=== PATIENT | male | born 1980 | race Caucasian/White ===

== ENCOUNTER 2019-02-10 22:22 | Inpatient (IN) ==
[2019-02-10] MEDS ORDERED: NS 1,000 ML IV ONE (23:55)
[2019-02-11] MEDS ORDERED: ZOSYN 3.375 GM in NS 50 ML IV ONE (00:53)
[2019-02-11] MEDS ORDERED: VANCOMYCIN 1 GM/NS 1 GM/250 ML IVPB IV ONE ×2 (00:53→08:00)
[2019-02-11 01:07] LABS: BASO# 0.02 X1000 (0.0-0.2); BASO% 0.2 % (0.0-0.8); EOS% 1.8 % (0.0-10.0); HEMOGLOBIN 10.6 g/dL (14.0-18.0); IMM GRAN# 0.03 X1000 (0.0-0.04); IMM GRAN% 0.3 % (0.0-0.5); LYMPH# 2.07 X1000 (1.2-3.4); LYMPH% 19.1 % (20.5-51.1); MCH 31.5 PG (27-31); MCHC 36.6 g/dL (33-37); MCV 86.3 FL (81-99); MONO# 0.87 X1000 (0.11-0.59); MPV 9.7 FL (7.4-10.4); NEUT# 7.64 X1000 (1.4-6.5); NEUT% 70.6 % (42.2-75.2); PLT 153 X1000 (130-400); RBC 3.36 XMIL (4.7-6.1); RDW 14.3 % (11.5-14.5); WBC 10.83 X1000 (4.8-10.8)
--- NOTE | 2019-02-11 01:31 | PROVIDER DOCUMENTATION ---
This chart was entered by Preston Manzo Scribe, acting as scribe for Hebert Zhou MD. HPI-Musculoskeletal Pain/Inj - GENERAL Chief Complaint: Edema Stated Complaint: CELLULITIS Time Seen by Provider: 02/10/19 23:34 Source: patient - HX OF PRESENT ILLNESS-MUSKULOSKELTAL Nature of Presenting Problem: Pt is a 38 yom who presents to the ED with a CC of cellulitis. Pt reports he noticed his cellulitis on , but states he thought it would eventually get better. Pt states he saw a surgeon last week to have a toe amputated and when he asked the surgeon about his leg the surgeon stated that it looked like a bug bite. Pt also complains of right knee tenderness and states that he cannot walk. Pt reports a hx of diabetes. Upon examination the pt had an ulceration to the arch of his foot, erythema to the lateral side of his leg, distal leg swelling, popliteal, calf, and medial thigh tenderness. Quality of Pain: reports: aching Severity in ED: mild Onset/Duration: 5 days ago Timing: still present Any recent injury?: No Similar Symptoms Previously?: No Recently seen or treated by another doctor?: No - LOWER EXTREMITY PAIN/INJURY Lower Extremities Pain: leg: right, knee: right, foot: right Context / Method of Injury: reports: unknown Associated Symptoms: reports: denies symptoms Review of Systems - Adult - REVIEW OF SYSTEMS - ADULT Constitutional: reports: see HPI. denies: chills, fever, fatique, night sweats Eyes: reports: no symptoms reported Ears, Nose, Mouth & Throat: reports: no symptoms reported Cardiovascular: reports: no symptoms reported Respiratory: reports: no symptoms reported Gastrointestinal: reports: no symptoms reported Genitourinary: reports: no symptoms reported Musculoskeletal: reports: see HPI, joint pain (Right knee, leg, and foot), joint swelling. denies: bone pain, back pain, neck pain Integumentary: reports: no symptoms reported Neurological: reports: no symptoms reported Psychiatric: reports: no symptoms reported Endocrine: reports: see HPI, change in skin pigment. denies: excessive sweating, cold intolerance, heat intolerance, increased hunger Hematologic/Lymphatic: reports: no symptoms reported Allergic/Immunologic: reports: no symptoms reported All Other Systems: Reviewed and Negative Past History - Adult - PAST MEDICAL HISTORY-ADULT Review of Records: reports: Old Records Reviewed, Nursing Assessment Review, Medications Reviewed, Social history reviewed & non-contributory. Major Childhood Illnesses: reports: denies history Cardiovascular: reports: HTN Respiratory: reports: denies history Gastrointestinal: reports: denies history Obstetrical/Gynecological: reports: denies history Genitourinary: reports: denies history Musculoskeletal: reports: denies history Neurological: reports: denies history Endocrine/Immune: reports: denies history Other Conditions: reports: denies history - IMMUNIZATION STATUS Childhood Immunizations: See Nurse Assessment Flu Vaccine: See Nurse Assessment - FAMILY HISTORY Family History: reviewed, not pertinent - SOCIAL HISTORY Smoking: denies, non-smoker, quit greater than 1 year Substance Use: none/never, denies Alcohol Use Frequency: never Physical Exam-Injury Related - Physical Exam-Injury Related Initial Vital Signs Reviewed: Yes General Appearance: appears well, alert, mild distress Eyes: PERRL/EOMI Neck: non-tender, full range of motion. negative: decresed ROM, ecchymosis, limited range of motion, lymphadenopathy Respiratory: chest non-tender, lungs clear, normal breath sounds, no pleuratic chest pain, no respiratory distress, no accessory muscle use. negative: respiratory distress, decreased breath sounds, accessory muscle use, crackles, stridor, wheezing Cardiovascular: normal peripheral pulses, regular rate, rhythm, no edema, no gallop, no JVD, no murmur. negative: JVD, bradycardia, systolic murmur, extra beats, friction rub Abdominal Exam: non tender, soft. negative: distended, guarding, rigid, rebound, tenderness Back Exam: no CVA tenderness, no vertebral tenderness. negative: decreased range of motion, ecchymosis, muscle spasm, scoliosis Extremity: normal range of motion, erythema, inflammation, swelling, tenderness. negative: deformity, joint effusion, pedal edema Integumentary: warm/dry, decubitus, erythema, swelling. negative: normal color, blanching, cyanosis, ecchymosis, embolic lesions, jaundice, zoster-like rash Neurologic: grossly normal, no motor/sensory deficits. negative: aphasia, motor weakness, sensory deficit Psych/Mental Status: normal mood/affect, normal thought content, normal thought process, oriented x 3. negative: disoriented x 3, anxious, disheveled, depressed affect, paranoid Progress - PLAN OF CARE/RESULTS Progress/Plan/Lab Results: Vital Signs - 8 hr 02/10/19 22:28 02/11/19 00:47 Temperature 98.8 F Pulse Rate 102 H 96 H Respiratory Rate 18 14 Blood Pressure 164/104 141/86 O2 Sat by Pulse Oximetry 100 98 Laboratory Results - last 24 hr 02/11/19 02/11/19 00:38 00:38 WBC 10.83 H RBC 3.36 L Hgb 10.6 L Hct 29.0 L MCV 86.3 MCH 31.5 H MCHC 36.6 RDW Std Deviation 14.3 Plt Count 153 MPV 9.7 Immature Gran % (Auto) 0.3 Neut % (Auto) 70.6 Lymph % (Auto) 19.1 L Franklin % (Auto) 8.0 Eos % (Auto) 1.8 Baso % (Auto) 0.2 Immature Gran # (Auto) 0.03 Neut # (Auto) 7.64 H Lymph # (Auto) 2.07 Franklin # (Auto) 0.87 H Eos # (Auto) 0.20 Baso # (Auto) 0.02 D-Dimer, Quantitative 0.77 H Orders Category Date Time Status Finger Stick Blood Sugar (ED) DIRECTED Care 02/10/19 23:56 Active FOOT COMPLETE RIGHT [RAD] Stat Exams 02/10/19 23:55 Taken BLOOD CULTURE [BLDCUL] Stat Lab 02/11/19 00:38 Received CBC WITH DIFF [HEME] Stat Lab 02/11/19 00:38 Results COMPREHENSIVE METABOLIC PANEL [CHEM] Stat Lab 02/11/19 00:38 Received D-DIMER [COAG] Stat Lab 02/11/19 00:38 Completed SED RATE [HEME] Stat Lab 02/11/19 00:38 Results 0.9% Sodium Chloride Inj [Ns] 1,000 ml Med 02/10/19 23:55 Active IV 125 mls/hr Piperacillin/Tazobactam [Zosyn] 3.375 gm Med 02/11/19 00:53 Discontinued 0.9% Sodium Chloride Inj [Ns] 50 ml IV NOW Vancomycin 1 gm/Ns Med 02/11/19 00:53 Active 1 gm in 250 ml IV NOW Result Diagrams: 02/11/19 00:38 Departure - Departure Date of Disposition Decision: 02/11/19 Time of Disposition Decision: 00:54 DIAGNOSIS: Diabetic foot ulcer Qualifiers: Diabetic foot ulcer location: midfoot Diabetes mellitus type: type 1 Laterality: right Non-pressure ulcer stage: unspecified non-pressure ulcer stage Qualified Code(s): E10.621 - Type 1 diabetes mellitus with foot ulcer; L97.419 - Non-pressure chronic ulcer of right heel and midfoot with unspecified severity Disposition: ADMITTED INPATIENT 09 Certified Medical Emergency: Emergent Condition: Good - Critical Care Note This patient required my direct & personal management of CC.: No Attestation - Physician/ ALEXUS Attestation Patient care was provided by Advanced Practice Provider:: No The physician spent face to face time with patient:: Yes Advanced Practice Provider documentation review:: Supervising physician onsite and consulted in the evaluation and care of this patient. The physician did have a face to face encounter with the patient. This chart was documented by the indicated scribe, (Preston Manzo, Scribe) and accurately reflects the services I performed and decisions made by me, Hebert Zhou MD, as attested by the provider's signature.
[2019-02-11 01:43] LABS: AGAP 13; ALB/GLOB RATIO 1.3; ALBUMIN 4.3 g/dL (3.5-5.0); ALKALINE PHOSPHATASE 117 U/L (32-122); BUN 18 mg/dL (8-22); CALCIUM 9.1 mg/dL (8.8-10.2); CHLORIDE 94 mmol/L (98-107); COSMO 278; CREATININE 1.2 mg/dL (0.7-1.2); ESTIMATED GFR > 60; GLUCOSE 313 mg/dL (70-104); GOT 14 U/L (10-34); GPT 20 U/L (10-44); SODIUM 132 mmol/L (136-145); TCO2 25 mmol/L (25-35); TOTAL BILIRUBIN 1.98 mg/dL (0.20-1.00); TOTAL PROTEIN 7.6 g/dL (6.3-8.3)
[2019-02-11 02:07] LABS: SED RATE 121 mm/hr (0-15)
--- NOTE | 2019-02-11 03:47 | HISTORY AND PHYSICAL ---
PRIMARY CARE PHYSICIAN: Dr. Josey Neal. CHIEF COMPLAINT: Right foot ulcer. HISTORY OF PRESENTING ILLNESS: A 38-year-old male with a history of right foot Charcot arthroplasty, diabetes mellitus type 2, hypertension, DVT, who recently noticed an ulcer on his right foot about several weeks. He, apparently, had seen his orthopedic doctor who did an I and D. He states that his ulcer started worsening, he was having more pain, erythema, and tenderness, and subsequently had come to the emergency department. In the ED, he was evaluated and due to his presenting symptoms, it was thought that he would require admission for further management. At the time of my examination, patient had denied any headache, fever, chills, chest pain, shortness of breath, hemoptysis, or weight changes, but complained of right foot pain. PAST MEDICAL HISTORY: Include diabetes mellitus type 2, hyperlipidemia, hypertension, DVT, right foot osteomyelitis. PAST SURGICAL HISTORY: Left foot toe removal, hernia repair, appendectomy, right foot surgery. ALLERGIES: No known drug allergies. CURRENT MEDICATIONS: Atorvastatin 40 mg p.o. at bedtime, gabapentin 400 mg p.o. q.i.d., Amaryl 4 mg p.o. daily, Toujeo 35 units subcu daily, lisinopril 5 mg p.o. daily, metformin 1000 mg p.o. b.i.d., Xarelto 20 mg p.o. at bedtime, tramadol 50 mg p.o. t.i.d., trazodone 100 mg p.o. at bedtime. SOCIAL HISTORY: No history of smoking. Admits to dipping snuff. Denies any history of alcohol or illicit drug use. FAMILY HISTORY: No history of coronary disease. REVIEW OF SYSTEMS: Fourteen-point review of systems is as in HPI. Other systems negative. PHYSICAL EXAMINATION: GENERAL: Cooperative, friendly male. He is resting comfortably now. VITAL SIGNS: Temperature 98.8 degrees, pulse 102, respiration 18, blood pressure 154/104. HEENT: Atraumatic, normocephalic. Extraocular movements intact. PERRLA. NECK: Supple. CHEST: Clear to auscultation. CARDIOVASCULAR: Regular rate and rhythm. S1, S2. ABDOMEN: Soft, positive bowel sounds. EXTREMITIES: Right foot erythema and ulcer. GENITOURINARY: No bladder distention. SKIN: Warm. LABORATORIES AND STUDIES: Sodium 132, potassium 4.0, chloride 94, CO2 of 25, BUN is 18, creatinine is 1.2. Glucose is 313. WBCs 10.83, hemoglobin 10.6, hematocrit 29.0, platelets is 153,000. ASSESSMENT: This is a 38-year-old male with a history of diabetes mellitus type 2, hypertension, DVT, who had presented to emergency department with worsening pain in his right foot. It seems that he has an ulcer that was incised and drained recently. His symptoms were worsening, subsequently, had come to the emergency department. He was evaluated, and due to his presenting symptoms, he will require admission for further management. 1. Right foot ulcer with cellulitis. 2. Diabetes mellitus type 2. 3. Hypertension. 4. History of deep venous thrombosis. PLAN: 1. We will admit patient to medical floor with telemetry. 2. We will consult his orthopedic physician 3. Will put patient on IV antibiotics. 4. Monitor blood glucose and put patient on sliding scale insulin regimen. 5. Monitor blood pressure. Resume antihypertensive agent. 6. We will continue his anticoagulation for his DVT. 7. We will continue to follow and reassess, make further recommendation based on patient's clinical course. cc: Carlos A Buck MD MTDD
[2019-02-11] MEDS ORDERED: VANCOMYCIN IV PER PHARMACY MISC SCH (06:04)
[2019-02-11] MEDS: ZOSYN 3.375 GM in NS 50 ML IV SCH ×4 (06:49→23:59)
--- NOTE | 2019-02-11 08:02 | Diag Imaging Result Doc PS360 ---
EXAM: FOOT COMPLETE RIGHT 02/10/2019 HISTORY: dm ulcer TECHNIQUE: Right foot three views COMMENT: There is internal fixation of the second third and fourth proximal interphalangeal joints and the first and second metatarsal tarsal joints with screws passing all the way into the talus. There is also a screw passing through the calcaneus into the talus and another passing through the calcaneus into the third cuneiform and the base of the third metatarsal. There is an apparent ulcer in the plantar aspect laterally subadjacent to the metatarsotarsal joint. There is no appreciable osseous erosion or periosteal reaction. There are no previous radiographs available for comparison. IMPRESSION: Postsurgical changes. No definite evidence of osteomyelitis. Electronically signed by Jamal Walton 02/11/2019 7:59 AM
[2019-02-11] MEDS: ULTRAM PO SCH ×3 (08:12→18:00)
[2019-02-11] MEDS: NEURONTIN PO SCH ×4 (08:12→20:57)
[2019-02-11] MEDS: PRINIVIL PO SCH (08:12)
--- NOTE | 2019-02-11 08:16 | ORTHOPAEDICS CONSULTATION ---
DATE: 02/11/2019 HISTORY OF PRESENT ILLNESS: Mr. Jones is a 38-year-old male who presented to the emergency department with worsening right foot pain and swelling. He was admitted per the hospitalist service. Started on IV antibiotics. I was consulted. I have known Mr. Jones now for a long time. We have done several surgeries on his right foot. I have seen him very recently in clinic for this ulcer on the bottom of his foot. We drained it a few weeks ago and, actually, it was getting a lot better. It actually looked pretty good the last time that he was in the office. He did not have any swelling to the foot and no erythema. We thought we were making some really good progress. Unfortunately, it took a turn for the worse yesterday, on 02/10/2019. It started getting a lot of swelling and redness, and he came immediately to the ER which we have advised him to do in the past. He did a good job of getting in very quickly. PAST MEDICAL HISTORY: 1. 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 2. Hypertension. PAST SURGICAL HISTORY: 1. Several right foot surgeries. 2. Appendectomy. 3. Hernia repair. 4. Left toe amputation. ALLERGIES: No known drug allergies. MEDICATIONS: Per the medical record. SOCIAL HISTORY: He denies any smoking. He does dip snuff. Denies alcohol use. FAMILY HISTORY: Positive for heart disease. REVIEW OF SYSTEMS: Positive for this right foot pain. All other systems are essentially negative. PHYSICAL EXAMINATION: General: Well-nourished male lying in bed, in no acute distress. Head and Neck: Normocephalic, atraumatic. Respirations: He has nonlabored breathing. Cardiovascular: Regular pulse. Abdomen: Nondistended. Right Lower Extremity Examination: He has erythema around the leg and ankle area. He has some swelling in that area also and on the foot, he has an area of what looks like a superficial abscess going from the plantar wound up to the lateral aspect over that fifth metatarsal. He has a little bit of a wound there as well. On the medial side, it actually looks okay. I do not see any swelling over that medial incision. He does have some erythema to the foot. I do not see any active drainage. RADIOGRAPHS: Three-view of the right foot shows surgical-related changes to the midfoot. It looks like he does have a good solid fusion throughout the midfoot and the subtalar joint. ASSESSMENT: 1. Right foot abscess and cellulitis. 2. Right diabetic neuroarthropathy. PLAN: I discussed with Mr. Jones about his foot. Unfortunately, it has gotten infected. I am going to order a CT scan today. We will plan on a big irrigation and debridement tomorrow, and possible placement of antibiotic cement, and even possible removal of the implants. I went over with him the procedure, risks, benefits, and potential complications. He expressed understanding and wished to proceed. We will get everything set for in the morning, get the CT scan today. He will remain on IV antibiotics now. cc: Talib Corona MD
[2019-02-11] MEDS: NORCO-10 PO PRN ×3 (15:08→23:55)
--- NOTE | 2019-02-11 16:35 | PROGRESS NOTE ---
DATE: 02/11/2019 SUBJECTIVE: Mr. Jones was admitted yesterday or early this morning. He is a patient of Dr. Josey Neal, a 38-year-old with history of right Charcot arthroplasty, diabetes mellitus type 2, hypertension and DVT. He recently noticed an ulcer on his right foot for about several weeks. Apparently he has seen an orthopedic doctor who did an I and D. He states his ulcer started getting worse, having more pain, erythema and tenderness, and subsequently came to the emergency room. In the emergency room he was evaluated. Due to his present symptoms, it was thought he would require admission for further examination. OBJECTIVE: Right foot shows surgical related changes in the midfoot. It looks like he has a good solid fusion throughout the midfoot and the subtalar joint. ASSESSMENT AND PLAN: 1. Dr. Corona discussed with the patient, unfortunately this has gotten infected and he plans a big irrigation and debridement tomorrow, possible placement of antibiotic cement and even possible removal of implants. He has an ulcer on his left foot. He has had, I think, a 2nd toe amputation. 2. Diabetes. Continue to follow his sugars. He is on pattern sugars. 3. He is complaining of more pain. I will start some Vale. On review of his orders, Lipitor 40 mg a day, Xarelto 20 mg at bedtime, trazodone 100 mg at bedtime, Neurontin 400 mg 4 times a day. I put him on some Vale 10 mg q.4 hours p.r.n., Prinivil 10 mg daily, tramadol 50 mg t.i.d., vancomycin 2 g q.12, Zosyn 3.375 g intravenously q.6 hours. He is getting normal saline; I think it is at keep vein open at the present time. cc: Luis Felipe Guerrier MD
[2019-02-11] MEDS: DESYREL PO SCH (20:57)
[2019-02-11] MEDS: VANCOMYCIN 2 GM in NS 500 ML IV SCH (20:57)
[2019-02-11] MEDS: LIPITOR PO SCH (20:57)
[2019-02-11] MEDS: XARELTO PO SCH (20:57)
[2019-02-11] MEDS: HUMULIN R SUBQ SCH (23:51)
[2019-02-12] MEDS: ZOSYN 3.375 GM in NS 50 ML IV SCH ×3 (05:38→20:55)
[2019-02-12] MEDS: NORCO-10 PO PRN ×2 (05:44→20:54)
[2019-02-12] MEDS: HUMULIN R SUBQ SCH ×4 (06:02→20:55)
--- NOTE | 2019-02-12 06:29 | Diag Imaging Result Doc PS360 ---
CT EXT LOWER RIGHT W/O CON - 02/11/2019 INDICATION: right leg cellulitis, hardware in foot TECHNIQUE: CT right foot COMPARISON: 04/15/2018 FINDINGS: There are a total of four fusion screws in the foot and three in toes. The screw in the calcaneocuboid joint has been removed. There is little change in the advanced destruction of all the tarsal bones and proximal metatarsals. Remaining joints are severely abnormal. Stable pes planus. Stable mild nonspecific soft tissue swelling about the tarsal bones. No focal fluid collections. No soft tissue gas. IMPRESSION: Little change from prior. There has been removal of one of the fixation screws. 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 Stable mild nonspecific soft tissue swelling. Electronically signed by Antonio Del Toro 02/12/2019 6:27 AM
[2019-02-12 07:34] LABS: BASO# 0.03 X1000 (0.0-0.2); BASO% 0.5 % (0.0-0.8); EOS# 0.23 X1000 (0.0-0.7); EOS% 4.1 % (0.0-10.0); HEMATOCRIT 28.4 % (42.0-52.0); IMM GRAN# 0.02 X1000 (0.0-0.04); IMM GRAN% 0.4 % (0.0-0.5); LYMPH# 1.51 X1000 (1.2-3.4); LYMPH% 26.9 % (20.5-51.1); MCH 31.2 PG (27-31); MCHC 35.2 g/dL (33-37); MCV 88.5 FL (81-99); MONO# 0.32 X1000 (0.11-0.59); MONO% 5.7 % (1.7-9.3); MPV 9.5 FL (7.4-10.4); NEUT% 62.4 % (42.2-75.2); PLT 166 X1000 (130-400); RBC 3.21 XMIL (4.7-6.1); RDW 14.3 % (11.5-14.5); WBC 5.61 X1000 (4.8-10.8)
[2019-02-12 07:53] LABS: AGAP 12; BUN 15 mg/dL (8-22); CALCIUM 9.3 mg/dL (8.8-10.2); CHLORIDE 103 mmol/L (98-107); COSMO 287; CREATININE 1.1 mg/dL (0.7-1.2); ESTIMATED GFR > 60; GLUCOSE 215 mg/dL (70-104); POTASSIUM 4.2 mmol/L (3.5-5.1); SODIUM 140 mmol/L (136-145); TCO2 25 mmol/L (25-35)
[2019-02-12] MEDS: VANCOMYCIN 2 GM in NS 500 ML IV SCH ×2 (09:33→20:55)
[2019-02-12] MEDS: ULTRAM PO SCH ×3 (09:34→16:59)
[2019-02-12] MEDS: PRINIVIL PO SCH (09:34)
[2019-02-12] MEDS: NEURONTIN PO SCH ×4 (09:34→20:54)
--- NOTE | 2019-02-12 10:53 | ORTHOPAEDICS PROGRESS NOTE ---
DATE: 02/12/2019 SUBJECTIVE: Mr. Jones is lying in bed this morning. Overall feeling a little bit better. OBJECTIVE: Right lower extremity: He still has erythema to the foot and a little bit up the leg. He still has some necrotic looking skin on the plantar and lateral aspect of the midfoot. ASSESSMENT: Right diabetic foot ulcer with cellulitis and abscess. PLAN: We plan on taking Mr. Jones to the operating room today for irrigation and debridement of this foot. I will plan on also doing a hardware removal more than likely of the 2 posterior screws. I went over with him again about the procedure and he expressed understanding and wished to proceed. He is n.p.o. and will go to the OR today. cc: Talib Corona MD
--- NOTE | 2019-02-12 13:51 | PROGRESS NOTE ---
DATE: 02/12/2019 SUBJECTIVE: Mr. Jones is awaiting surgery this afternoon. He is comfortable, and seems to understand the plan of treatment. OBJECTIVE: Vitals: Temperature is 97.9 degrees, pulse 89, respirations 20, blood pressure 117/92. HEENT: Pupils are equal and round. Lungs: Clear in all lung heart. Cardiovascular: Regular rhythm and rate without murmur or S3. Abdomen: Soft. Skin: Warm and dry. DIAGNOSTIC DATA: Urine output is 920 mL. Blood sugars 278, 214, 210. ASSESSMENT AND PLAN: 1. Right diabetic foot ulcer, with cellulitis and abscess. Today Dr. Corona is going to take him down for irrigation and debridement of the foot, and plan on also doing hardware removal more than likely. 2. Diabetes mellitus, type 2. Follow sugars. 3. Left foot, which has had a toe amputation. I will continue to watch that as well. REVIEW OF ORDERS: I do not see any change. Recent lab unremarkable except hematocrit is 28, hemoglobin 10, aware. Blood sugars 278, 214, 215 and 210. May adjust insulin. We will see how he does. cc: Luis Felipe Guerrier MD
[2019-02-12] MEDS ORDERED: ROBINUL ONE (16:26)
[2019-02-12] MEDS ORDERED: DIPRIVAN 1% ONE (16:26)
[2019-02-12] MEDS ORDERED: XYLOCAINE-MPF 2% ONE (16:26)
[2019-02-12] MEDS ORDERED: TORADOL ONE (17:32)
[2019-02-12] MEDS ORDERED: ZOFRAN ONE (17:32)
--- NOTE | 2019-02-12 20:49 | OPERATIVE NOTE ---
PROCEDURE DATE: 02/12/2019 PREOPERATIVE DIAGNOSES: 1. Right foot hardware-related pain. 2. Right foot diabetic foot ulcer with surrounding cellulitis and abscess. POSTOPERATIVE DIAGNOSES: 1. Right foot hardware-related pain. 2. Right foot diabetic foot ulcer with surrounding cellulitis and abscess. PROCEDURES PERFORMED: 1. Right foot irrigation and debridement to the subcutaneous tissue. 2. Right hardware removal (deep from the foot). SURGEON: Dr. Talib Corona. SUPERVISOR BRIAR SHOP: Mariza Funk, Nurse Practitioner, who was an integral part of the case, helping with all aspects of the case, helping to increase our OR efficiency greatly. ANESTHESIA: General with LMA. ESTIMATED BLOOD LOSS: About 10 mL. SPECIMENS: Cultures taken from the foot wound. DISPOSITION: To PACU hemodynamically stable. INDICATION FOR PROCEDURE: Mr. Jones is a 38-year-old male who I have been following for a long time for this Charcot foot and we did a big reconstruction. He is still getting a few ulcers here and there. He recently came in with an ulcer and we drained it. It had some superficial fluid and he was doing better. Unfortunately, things turned to the worse a few days ago when he started getting a lot of swelling and erythema up the leg. He was admitted to the hospital. I was consulted. We ended getting a CT scan which really did not show a lot of different changes from his previous CT scan. So I discussed with him about surgical intervention. He expressed understanding and wished to proceed. DESCRIPTION OF PROCEDURE: Mr. Jones was identified in the preoperative holding area. The right foot was marked as the correct surgical site. He was then wheeled to the operating room and placed supine on the operating table. All bony prominences well padded. He was induced under general anesthesia. LMA was placed. Tourniquet was placed to the right thigh. Right lower extremity then prepped with chlorhexidine gluconate scrub and then ChloraPrep and draped in normal sterile fashion. Surgical pause was performed. We identified the correct patient, the correct side, and the correct procedure. Preoperative antibiotics were given. Tourniquet was inflated to 300 mmHg without Esmarch or elevation. I started with debriding the abscess on the plantar and lateral aspect of the foot. We got all of the skin off first. It looked like it was more just a superficial abscess down in the subcutaneous tissue. After we debrided a lot of the skin, you could see that it did not track deep into the foot. It just involved the dermal layer and the subcutaneous layer. We excisionally debrided the wound very thoroughly with forceps and scalpel and a curette and got back to healthy-appearing tissue. Before our debridement, I did take cultures and we sent that to the lab. After a very thorough debridement, we then irrigated everything copiously with normal saline and it looked nice and clean at that point. Like I said, we did not see anything go deep and so we did not make a formal incision to try to dissect down to bone. He did have 1 screw that was close to the plantar aspect of the foot in the midfoot area which is close to where a lot of that erythema and cellulitis is and so I decided take that screw out just to make sure that there was no hardware in that area that could get infected. So I made a small incision on the very posterior aspect of the hind foot. Dissection was carried down. I found the screw head and then got the screwdriver on it and removed that screw. He tolerated that well. There was not a lot of bleeding with that. I then sutured that up with nylon. Then Adaptic and 4 x 4s were placed over that posterior wound. A wet-to-dry dressing was placed over the exposed diabetic foot ulcer part and a soft dressing was applied. He was then wheeled from general anesthesia, moved to his own bed, and taken to PACU in stable condition. Postoperatively nonweightbearing right lower extremity. We will get a wound care nurse involved tomorrow for wound changes. cc: MD DEDE Segovia
[2019-02-12] MEDS: LIPITOR PO SCH (20:54)
[2019-02-12] MEDS: DESYREL PO SCH (20:54)
[2019-02-12] MEDS: XARELTO PO SCH (20:55)
[2019-02-12] MEDS ORDERED: MORPHINE IV ONE (22:33)
[2019-02-13] MEDS: ZOSYN 3.375 GM in NS 50 ML IV SCH ×4 (00:16→20:13)
[2019-02-13] MEDS: NORCO-10 PO PRN ×4 (00:55→20:12)
[2019-02-13] MEDS: HUMULIN R SUBQ SCH ×4 (06:00→20:13)
[2019-02-13] MEDS: NEURONTIN PO SCH ×4 (09:17→20:12)
[2019-02-13] MEDS: PRINIVIL PO SCH (09:17)
[2019-02-13] MEDS: ULTRAM PO SCH ×3 (09:18→16:23)
[2019-02-13] MEDS: VANCOMYCIN 2 GM in NS 500 ML IV SCH (09:18)
--- NOTE | 2019-02-13 09:56 | ORTHOPAEDICS PROGRESS NOTE ---
DATE: 02/13/2019 SUBJECTIVE: Mr. Jones is lying in bed this morning. Pain is controlled. OBJECTIVE: Right lower extremity exam, dressing is clean, dry, and intact. He is able to move the toes well. He has good capillary refill to all the toes. Left lower extremity exam, dressing there is dry and intact. Also he is able to move the toes on that side. ASSESSMENT: Status post right foot irrigation and debridement of diabetic foot ulcer and hardware removal. PLAN: I discussed with Mr. Jones that fortunately the infection did not look to track deep into the foot. We saw no exposed bone or tendon yesterday in the OR; it tended to be mainly involving his dermal and subcutaneous tissue, so we will get our wound care nurse today involved for dressing changes. He will probably need to be on IV antibiotics a while longer to eradicate the cellulitis. He is nonweightbearing right lower extremity for now until we can get this ulceration healed on the plantar aspect of his foot. cc: Talib Corona MD
[2019-02-13] MEDS ORDERED: SANTYL OINT TOP ONE (13:30)
--- NOTE | 2019-02-13 16:51 | PROGRESS NOTE ---
DATE: 02/13/2019 Mr. Jones is feeling much better. His girlfriend was there visiting him Christine. OBJECTIVE: Temperature is 98.2 degrees, pulse 82, respirations 16, blood pressure 141/72. Pupils are equal and round. Lungs are clear in all lung heart. Cardiovascular regular rhythm, rate without murmur or S3. Abdomen soft, nondistended, nontender. Positive bowel sounds. Blood sugar 194, 318, 324. ASSESSMENT AND PLAN: 1. Status post right foot irrigation, debridement of left diabetic foot, hardware removal. Fortunately infection did not look to track deep into the foot and saw no exposed bone so thought the infection was mainly in the dermal subcutaneous tissue so continue topical care and antibiotics and try and eradicate the cellulitis. 2. Continue to follow blood sugars, underlying diabetes mellitus type 2. 3. Nutrition looks good. So currently he is on Xarelto 20 mg at bedtime, Lipitor 40 mg a day, Desyrel 100 mg at bedtime, Neurontin 400 mg p.o. 4 times a day, Prinivil 10 mg daily, Ultram 50 mg t.i.d., he is on vancomycin and piperacillin present time. cc: Luis Felipe Guerrier MD
[2019-02-13] MEDS: DESYREL PO SCH (20:12)
[2019-02-13] MEDS: XARELTO PO SCH (20:12)
[2019-02-13] MEDS: LIPITOR PO SCH (20:12)
[2019-02-14] MEDS: ZOSYN 3.375 GM in NS 50 ML IV SCH ×4 (02:05→21:36)
[2019-02-14] MEDS: NORCO-10 PO PRN ×4 (02:06→19:50)
[2019-02-14] MEDS: VANCOMYCIN 2 GM in NS 500 ML IV SCH ×2 (05:21→16:59)
[2019-02-14] MEDS: HUMULIN R SUBQ SCH ×4 (06:12→21:36)
[2019-02-14] MEDS: ULTRAM PO SCH ×3 (08:56→16:39)
[2019-02-14] MEDS ORDERED: LANTUS INSULIN SUBQ SCH (09:00)
--- NOTE | 2019-02-14 09:03 | PROGRESS NOTE ---
DATE: 02/14/2019 SUBJECTIVE: Mr. Jones is feeling better today, less pain and discomfort. OBJECTIVE: Vital signs: Temperature 97.6 degrees, pulse 80, respirations 16, blood pressure 161/86. HEENT: Pupils are equal and round. Lungs: Clear in all lung heart. Cardiovascular: Regular rhythm and rate without murmur or S3. Abdomen: Soft. Skin: Warm and dry. Urine output is almost 4 L. ASSESSMENT AND PLAN: 1. Status post irrigation and debridement of the right foot. Hardware was removed and fortunately, infection did not look like it tracked down the foot too far. Continue present antibiotics and assess how long we will give him antibiotics based on his cultures. 2. Blood sugars look good. 3. Nutrition is good. REVIEW OF HIS ORDERS: I do not see any change. His hematocrit is 28, hemoglobin 10. Blood sugars running a little bit high and wonder if he would benefit from some Lantus insulin, so may start that. cc: Luis Felipe Guerrier MD
[2019-02-14] MEDS: PRINIVIL PO SCH (09:59)
[2019-02-14] MEDS: NEURONTIN PO SCH ×4 (09:59→21:35)
[2019-02-14] MEDS: SANTYL OINT TOP SCH (10:04)
[2019-02-14] MEDS: TOUJEO SOLOSTAR SUBQ SCH (10:08)
--- NOTE | 2019-02-14 17:46 | ORTHOPAEDICS PROGRESS NOTE ---
DATE: 02/14/2019 SUBJECTIVE: Mr. Jones is lying in bed this morning overall feeling well. Not really complaining of much pain or much malaise. OBJECTIVE: Right lower extremity exam, dressing is clean, dry, and intact. I do not see any drainage anywhere. He is able to move his toes. He does have decreased sensation to the toes. Left lower extremity exam, dressing over there is intact as well. I do not see any drainage. ASSESSMENT: Status post right foot irrigation, debridement, hardware removal. PLAN: We are going to check Mr. Jones's wound on Saturday02/16/2019 and if everything looks good then we will probably be able to set up antibiotics and get him discharged. Since this infection did not look like it involved bone I would be okay with him going out on an oral antibiotic. Will continue IV antibiotics while he is inpatient. He is nonweightbearing right lower extremity. We will continue wound care as well. cc: Talib Corona MD
[2019-02-14] MEDS: DESYREL PO SCH (21:00)
[2019-02-14] MEDS: LIPITOR PO SCH (21:35)
[2019-02-14] MEDS: XARELTO PO SCH (21:35)
[2019-02-15] MEDS: ZOSYN 3.375 GM in NS 50 ML IV SCH ×4 (02:38→21:35)
[2019-02-15] MEDS: HUMULIN R SUBQ SCH ×4 (06:18→21:35)
[2019-02-15] MEDS ORDERED: INSULIN PEN NEEDLES ONE (06:52)
[2019-02-15] MEDS: PRINIVIL PO SCH (08:14)
[2019-02-15] MEDS: TOUJEO SOLOSTAR SUBQ SCH (08:14)
[2019-02-15] MEDS: NEURONTIN PO SCH ×4 (08:14→21:35)
[2019-02-15] MEDS: ULTRAM PO SCH ×3 (08:16→16:36)
[2019-02-15] MEDS: SANTYL OINT TOP SCH (08:17)
--- NOTE | 2019-02-15 14:14 | PROGRESS NOTE ---
DATE: 02/15/2019 SUBJECTIVE: Mr. Jones has had a better night, much more comfortable. Right leg wrapped up. Remains afebrile. OBJECTIVE: Temperature 97.7 degrees, pulse 88, respirations 16, blood pressure 169/89. Pupils are equal and round. Lungs are clear in all lung heart. Cardiovascular Examination: Regular rhythm and rate without murmur or S3. Abdomen is soft. Skin is warm and dry. Urine output was 5000 mL. ASSESSMENT AND PLAN: 1. Status post irrigation and debridement of right foot. Continue present antibiotics. Doing better. Seems to be feeling better. 2. Blood sugars well controlled. 3. Nutrition looks good. 4. I do not see any change. REVIEW OF HIS ORDERS: He is on vancomycin and Zosyn. Continue present topical care. cc: Luis Felipe Guerrier MD
[2019-02-15] MEDS: VANCOMYCIN 2 GM in NS 500 ML IV SCH (17:47)
[2019-02-15] MEDS: XARELTO PO SCH (21:35)
[2019-02-15] MEDS: DESYREL PO SCH (21:35)
[2019-02-15] MEDS: LIPITOR PO SCH (21:35)
[2019-02-16] MEDS: ZOSYN 3.375 GM in NS 50 ML IV SCH ×4 (01:31→13:34)
[2019-02-16] MEDS: HUMULIN R SUBQ SCH ×2 (06:07→13:35)
--- NOTE | 2019-02-16 07:27 | ORTHOPAEDICS PROGRESS NOTE ---
DATE: 02/16/2019 SUBJECTIVE: Mr. Jones is lying in bed this morning. Pain is controlled. OBJECTIVE: On right lower extremity exam, I took his dressing down. His wound is looking a lot better. It is nice and good granulation tissue is there. I do not see any necrotic tissue anywhere. There is not a lot of erythema around there and there is no active drainage. ASSESSMENT: Right foot infection with some cellulitis. PLAN: I think Mr. Jones has gotten a lot better. I think a lot of his cellulitis is beginning to resolve. From an orthopedic standpoint, I do not think there is any osteomyelitis here. I think more is just soft tissue. The primary team feels like he can be discharged. I am okay with him being on p.o. antibiotics. His wound is looking really good on the bottom. I dressed it with Santyl today and applied a new dressing. He is nonweightbearing on the right lower extremity. I will see him in 1 week in the clinic. cc: Talib Corona MD
[2019-02-16] MEDS: ULTRAM PO SCH ×2 (09:07→13:34)
[2019-02-16] MEDS: PRINIVIL PO SCH (09:07)
[2019-02-16] MEDS: NEURONTIN PO SCH ×2 (09:08→13:34)
[2019-02-16] MEDS: SANTYL OINT TOP SCH (09:08)
[2019-02-16] MEDS: TOUJEO SOLOSTAR SUBQ SCH (09:09)
[2019-02-16 11:34] VITALS: BP 154/94
--- NOTE | 2019-02-16 14:12 | DISCHARGE SUMMARY ---
ADMISSION DATE: 02/11/2019 DISCHARGE DATE: 02/16/2019 Came in with right foot ulcer,this] is a 38-year-old with history of right foot Charcot arthroplasty, diabetes mellitus type 2, hypertension, deep venous thrombosis, recently noticed an ulcer in his right foot several weeks ago. Apparently seen orthopedic doctor sees Dr. Corona, his ulcer started worsening, having more pain, erythema and tenderness, came to the emergency room where he was admitted. Dr. Talib Corona had seen him. He had some surgical related changes in the midfoot looks like he had good solid effusion throughout the midfoot the subpatellar joint with a right foot abscess and cellulitis. He has diabetic neuropathy and took him to surgery on 02/12, right foot irrigation and debridement to subcutaneous tissue. Right hardware removed deep from the foot. He was put on antibiotics seemed to be progressing. Cultures from 02/12 right foot grew out strep agalactiae group B. The patient was improved and wanted to go home on 02/16/2019. He is a lot better, a lot of the cellulitis beginning to resolve. Dr. Corona did not feel like there is osteomyelitis here more soft tissue and felt he could be discharged so discharge orders going home. He is not allergic to anything. I am going to put him on Augmentin 875 mg twice a day. I am going to do that for another 2 weeks. Will put him on Lipitor 40 mg at bedtime, Xarelto 20 mg at bedtime, trazodone 100 mg at bedtime, Neurontin 400 mg 4 times a day, insulin glargine 35 units daily, lisinopril 10 mg a day, tramadol 50 mg t.i.d. cc: MD DEDE Justice
== END 2019-02-16 15:53 | disposition home or self-care (01) | DRG 623 ==
LOC: ED 22:22 → SUATTDRO 02-11 03:11 → 3N 02-11 03:11
PROVIDERS: ATTEND Emergency Medicine
CPT/HCPCS: 73630; 73700; 76000; 80048; 80053; 80202; 82565; 82948; 85025; 85379; 85651; 87040; 87070; 87075; 87077; 87186; 87205; 96360; 96361; 99285; A9270; J1885; J2270; J2405; J2543; J3370; J7030; J7040; XXXXX

== ENCOUNTER 2019-05-06 12:30 | Inpatient (IN) ==
--- NOTE | 2019-05-06 12:59 | PROVIDER DOCUMENTATION ---
HPI-General Adult - General Chief Complaint: Abscess Stated Complaint: R-FOOT ABCESS Time Seen by Provider: 05/06/19 12:57 Source: patient, other (signifcant other) Allergies/Adverse Reactions: Patient Allergies Allergy/AdvReac Type Severity Reaction Status Date / Time No Known Allergies Allergy Verified 05/06/19 13:12 Home Medications: Home Medication List Medication Instructions Recorded Confirmed Last Taken Type Glimepiride [Amaryl] 4 mg PO DAILY 03/19/17 05/06/19 02/10/19 History Metformin [Glucophage] 1,000 mg PO BID CC 03/19/17 05/06/19 02/10/19 History Trazodone [Desyrel] 100 mg PO QHS 04/15/18 05/06/19 02/10/19 History Gabapentin 400 mg PO 4XDAY 05/13/18 05/06/19 02/10/19 History Rivaroxaban [Xarelto] 20 mg PO QHS 05/13/18 05/06/19 02/10/19 History LISINOpril [Prinivil] 10 mg PO DAILY 08/25/18 05/06/19 02/10/19 History ATORVAstatin [Lipitor] 40 mg PO QHS 02/11/19 05/06/19 02/10/19 History Tramadol [Ultram] 50 mg PO TID 02/11/19 05/06/19 02/10/19 History - History of Present Illness -Gen Adult Nature of Presenting Problems: Woke up yesterday and felt pain in his groin which is what happens when his foot is infected. He is not sure if he has had a fever, but has had some night sweats. He reports the wound is red and swollen and has some yellow drainage. Location of Pain/Injury: reports: lower extremity (right) Pain Radiation: reports: other (radiates to right groin) Quality of Pain: reports: aching, burning, stabbing Onset/Duration: reports: 24 hours ago Timing: reports: still present Context/Activities at Onset: reports: other (worse with walking) Modifying Factors: improves with: nothing Associated Symptoms: reports: other (swelling in the leg) Similar Symptoms Previously?: Yes Recently seen or treated by another doctor?: Yes (See Last month with orthopedics) Review of Systems - Adult - REVIEW OF SYSTEMS - ADULT Constitutional: reports: night sweats. denies: fever Eyes: denies: blurred vision Ears, Nose, Mouth & Throat: denies: throat pain Cardiovascular: reports: edema. denies: chest pain Respiratory: reports: cough. denies: shortness of breath Gastrointestinal: reports: abdominal pain. denies: nausea, vomiting Genitourinary: denies: dysuria Musculoskeletal: reports: joint swelling, other (leg pain) Neurological: reports: numbness Psychiatric: denies: anxiety Endocrine: reports: other (diabetes) Past History - Adult - PAST MEDICAL HISTORY-ADULT Review of Records: reports: Old Records Reviewed Major Childhood Illnesses: reports: other (siezures whent 6yo) Cardiovascular: denies: HTN Respiratory: denies: asthma, COPD Gastrointestinal: reports: IBS, liver disease Genitourinary: denies: kidney disease Musculoskeletal: reports: chronic pain Neurological: reports: other (chronic LE numbness) Endocrine/Immune: reports: Diabetes Diabetes Type: Type 2 Diabetes controlled by:: Insulin Dependent Physical Exam-General - CONSTITUTIONAL General Appearance: appears well - EYES Eyes: negative: scleral icterus - HEAD, EARS, NOSE, MOUTH & THROAT HENMT: normocephalic/atraumatic - RESPIRATORY Respiratory: lungs clear, decreased breath sounds - CARDIOVASCULAR Cardiovascular: no murmur, tachycardia - GASTROINTESTINAL (ABDOMEN) Abdominal Exam: non tender - MUSCULOSKELETAL Extremity: erythema, swelling, tenderness Progress - PLAN OF CARE/RESULTS Progress/Plan/Lab Results: Vital Signs - 8 hr 05/06/19 12:36 Temperature 98.8 F Pulse Rate 119 H Respiratory Rate 18 Blood Pressure 148/88 O2 Sat by Pulse Oximetry 97 Result Diagrams: 05/06/19 13:45 05/06/19 13:45 Departure - Departure Date of Disposition Decision: 05/06/19 Time of Disposition Decision: 18:28 DIAGNOSIS: Diabetic foot infection Cellulitis Qualifiers: Site of cellulitis: extremity Site of cellulitis of extremity: lower extremity Laterality: right Qualified Code(s): L03.115 - Cellulitis of right lower limb Disposition: ADMITTED INPATIENT 09 Certified Medical Emergency: Emergent Condition: Fair Referrals and Follow-Ups: None,PCP [NON-STAFF PROVIDER] - - Critical Care Note This patient required my direct & personal management of CC.: No Attestation - Physician/ ALEXUS Attestation The physician spent face to face time with patient:: Yes Advanced Practice Provider documentation review:: Supervising physician onsite and consulted in the evaluation and care of this patient. The physician did have a face to face encounter with the patient.
[2019-05-06 14:23] LABS: BASO# 0.02 X1000 (0.0-0.2); BASO% 0.2 % (0.0-0.8); EOS# 0.05 X1000 (0.0-0.7); EOS% 0.5 % (0.0-10.0); HEMATOCRIT 30.5 % (42.0-52.0); HEMOGLOBIN 10.9 g/dL (14.0-18.0); IMM GRAN# 0.03 X1000 (0.0-0.04); IMM GRAN% 0.3 % (0.0-0.5); LYMPH# 0.85 X1000 (1.2-3.4); LYMPH% 8.2 % (20.5-51.1); MCH 31.1 PG (27-31); MCHC 35.7 g/dL (33-37); MCV 87.1 FL (81-99); MONO# 0.85 X1000 (0.11-0.59); MONO% 8.2 % (1.7-9.3); MPV 9.8 FL (7.4-10.4); NEUT# 8.51 X1000 (1.4-6.5); NEUT% 82.6 % (42.2-75.2); PLT 169 X1000 (130-400); RDW 13.5 % (11.5-14.5); WBC 10.31 X1000 (4.8-10.8)
[2019-05-06 14:38] LABS: AGAP 13; ALB/GLOB RATIO 1.1; ALBUMIN 3.9 g/dL (3.5-5.0); ALKALINE PHOSPHATASE 95 U/L (32-122); BUN 19 mg/dL (8-22); CALCIUM 9.3 mg/dL (8.8-10.2); CHLORIDE 92 mmol/L (98-107); COSMO 283; CREATININE 1.3 mg/dL (0.7-1.2); ESTIMATED GFR > 60; GLUCOSE 460 mg/dL (70-104); GOT 11 U/L (10-34); GPT 11 U/L (10-44); POTASSIUM 4.2 mmol/L (3.5-5.1); SODIUM 130 mmol/L (136-145); TCO2 25 mmol/L (25-35); TOTAL BILIRUBIN 1.52 mg/dL (0.20-1.00); TOTAL PROTEIN 7.3 g/dL (6.3-8.3)
[2019-05-06 15:09] LABS: SED RATE 108 mm/hr (0-15)
[2019-05-06] MEDS ORDERED: HUMULIN R SUBQ ONE (15:14)
[2019-05-06] MEDS ORDERED: NORCO-5 PO ONE (15:20)
--- NOTE | 2019-05-06 16:49 | Diag Imaging Result Doc PS360 ---
EXAM: FOOT COMPLETE RIGHT INDICATION: concern for osteomyelitis TECHNIQUE: 3 views COMPARISON: 02/11/2019 FINDINGS: There are metallic rods extending the length of the first and second metatarsals and extending to the tarsus into the talus. There is a metallic screw associated with the calcaneus and screws traversing the proximal phalanges of the second, third, and fourth proximal phalanges. One calcaneal lag screw seen on the previous study has been removed. All of the intertarsal joints appear to be fused. These chronic findings are stable. There is an ulceration at the plantar aspect of the midfoot that is also seen on the previous study. There is no underlying bony erosion to indicate osteomyelitis. No fracture is identified. There is soft tissue edema around the foot that is similar to the previous study. IMPRESSION: Extensive postsurgical changes associated with the foot and an ulceration at the plantar aspect of the foot but no plain radiograph evidence of osteomyelitis. Electronically signed by Onesimo Peña 05/06/2019 4:47 PM
[2019-05-06] MEDS ORDERED: MORPHINE IV ONE (18:31)
[2019-05-06] MEDS ORDERED: VANCOMYCIN 1 GM/NS 1 GM/250 ML IVPB IV ONE (18:32)
[2019-05-06] MEDS: ZOSYN 3.375 GM in NS 50 ML IV SCH (18:45)
[2019-05-06 20:43] LABS: INR 1.33; PROTIME 16.7 Seconds (11.0-16.0)
[2019-05-06 20:44] LABS: PTT 45.3 Seconds (22.3-41.8)
[2019-05-06 21:15] LABS: HEMOGLOBIN A1C 7.5 % (4.8-6.0)
[2019-05-06] MEDS: NORCO-7.5 PO PRN (22:43)
[2019-05-06] MEDS: NEURONTIN PO SCH (22:43)
[2019-05-06] MEDS: LIPITOR PO SCH (22:43)
[2019-05-06] MEDS: HUMULIN R SUBQ SCH (22:48)
[2019-05-07] MEDS ORDERED: MORPHINE IV ONE (00:09)
[2019-05-07] MEDS ORDERED: VANCOMYCIN IV PER PHARMACY MISC SCH (00:15)
[2019-05-07] MEDS: NS 1,000 ML IV SCH ×2 (00:37→21:28)
[2019-05-07] MEDS: ZOSYN 3.375 GM in NS 50 ML IV SCH ×4 (00:39→17:54)
[2019-05-07] MEDS ORDERED: VANCOMYCIN 1,850 MG in NS 500 ML IV ONE (02:00)
[2019-05-07] MEDS ORDERED: ZOFRAN IV PRN (03:39)
--- NOTE | 2019-05-07 04:53 | HISTORY AND PHYSICAL ---
PRIMARY CARE PROVIDER: Dr. Josey Neal. DATE AND TIME: 05/06/2019 at 2000. CHIEF COMPLAINT: Right lower extremity and right foot pain, and right foot wound. HISTORY OF PRESENT ILLNESS: Mr. Jonse is a 38-year-old male with a past medical history which includes diabetes mellitus type 2, hyperlipidemia, hypertension, DVT, as well as right foot osteomyelitis. He was admitted to the hospital in February 2019. He came in with a right foot wound. He did undergo surgery with Dr. Corona for right foot irrigation and debridement, as well they did do right hardware removal deep from the foot. He was discharged and has been following with Dr. Corona since then, as well receiving wound care from him also. The patient states things have been going well, his wound has been looking better, though yesterday he noticed that his foot was more swollen, erythematous, warm to the touch, and that his wound on plantar surface of his foot was worse and was draining a yellowish colored fluid. He also reports the pain extends from his right foot all the way up his right leg into his right groin. Though he has not checked his temperature, he has reported that he has been waking up drenched in sweat. This may suggest that he has been running a fever. Upon evaluation in the ER, the patient has been afebrile. He has no leukocytosis noted, though he was noted to be hyperglycemic with a glucose of 460 on arrival. Hemoglobin A1c was 7.5. He does have an approximately nickel to dime size wound on the plantar surface of his right foot. This does have a foul odor noted. It does have a surrounding area of erythema and swelling. It is tender and warm to the touch. He does have, as previously mentioned, the yellowish colored drainage noted. The patient's right lower extremity up to just about his knee is slightly erythematous as well and warm to the touch. He does report tenderness all the way up his right leg and in the groin. We They did perform a foot x-ray in the ER, which did show extensive postsurgical changes associated with the right foot and ulceration of the plantar aspect of the foot, but no plain radiographic evidence of osteomyelitis. They also performed a venous ultrasound of the bilateral lower extremities in the ER. This was reportedly negative, though, we are awaiting the official report from this study. At this time, blood cultures have been obtained, a wound culture has been obtained. The patient will be placed on antibiotics of vancomycin and Zosyn. He will be placed inpatient admission for further treatment and evaluation. REVIEW OF SYSTEMS: The patient denies any headache, dizziness, chest pain, shortness of breath or cough. He denied any abdominal pain. He reports some nausea, denied any vomiting or diarrhea. He denies any dysuria or urinary frequency. Other than his right lower extremity symptoms, as previously described, he denies any other pain, numbness, tingling, or swelling in extremities. PAST MEDICAL HISTORY: 1. Diabetes mellitus type 2. 2. Hyperlipidemia. 3. Hypertension. 4. History of DVT. 5. History of right foot osteomyelitis. 6. Charcot neuropathy. PAST SURGICAL HISTORY: 1. Several right foot surgeries. 2. Appendectomy. 3. Hernia repair. 4. Left toe amputation. SOCIAL HISTORY: The patient has no known history of tobacco, alcohol, or illicit drug use. FAMILY HISTORY: Positive for his Mother having hypertension and hyperlipidemia. His Father had a history of hypertension. ALLERGIES: Patient has no known allergy. HOME MEDICATIONS: 1. Lipitor 40 mg p.o. at bedtime. 2. Gabapentin 400 mg p.o. 4 times a day. 3. Amaryl 4 mg p.o. daily. 4. Lisinopril 10 mg p.o. daily. 5. Metformin 1000 mg p.o. b.i.d. 6. Xarelto 20 mg p.o. at bedtime. 7. Ultram 50 mg p.o. t.i.d. 8. Trazodone 100 mg p.o. at bedtime. DIAGNOSTIC DATA: 1. White blood cell count is 10,310, hemoglobin 10.9, hematocrit 30.5, platelet count is 169,000. PT 16.7, INR 1.33, PTT is 45.3. Sodium 130, potassium 4.2, chloride 92, serum bicarb is 13, BUN 19, creatinine 1.3, GFR greater than 60. Glucose 460. Hemoglobin A1c is 7.5. Calcium 9.3, total bilirubin is 1.52, AST 11, ALT 11, alkaline phosphatase 95. 2. Venous Doppler bilateral lower extremities was performed in the ER, though we do not have official report on this study, it was reported to be negative. 3. Right foot x-ray showed extensive postsurgical changes associated with the right foot and an ulceration of the plantar aspect of the right foot, but no plain radiographic evidence of osteomyelitis. PHYSICAL EXAMINATION: VITAL SIGNS: Temperature 98 degrees, heart rate 95, respirations 20, blood pressure was 173/88, oxygen saturation is 96% on room air. GENERAL: Mr. Jones is a 38-year-old male, he was resting in the ER stretcher. He was in no acute distress. He was awake, alert, and able to answer questions appropriately. HEENT: Head is atraumatic, normocephalic. Pupils are equal, round, reactive to light, were 3 mm bilaterally and brisk. Oral mucosa is moist. Oropharynx clear. NECK: Supple. Trachea midline. CARDIOVASCULAR: Patient has S1, S2 present. No murmurs, gallops, rubs appreciated with a regular rate and rhythm. PULMONARY: Patient has symmetrical chest expansion bilaterally. Lung sounds are clear to auscultation in bilateral full heart. ABDOMEN: Soft, nondistended, nontender. Bowel sounds are present in all 4 quadrants, were normoactive. EXTREMITIES: In the patient's right lower extremity, he does have tenderness noted from his right foot all the way to his right groin area. Though, he does have erythema, warmth, and swelling noted to his right foot, which extends up to his right knee. This area is tender to palpation as well. He does have a dime to nickel sized wound noted on the plantar surface of his right foot, which is open and drain a yellowish colored drainage and does have a foul odor, He does have a very small, approximately the size of #2 pencil eraser size wound noted on the lateral aspect of his 5th toe, though this has a scab noted, it does appear to be healing well. There is no signs of infection. Though radial and pedal pulses were 2+ bilaterally. Other than the reported symptoms and abnormalities as previously mentioned, all other extremities were within normal limits. INTEGUMENTARY: The patient's skin is pink, warm, and dry. NEUROLOGIC: Patient is alert and oriented to person, place, time, and situation. He is able to move all extremities. There were no focal neurological deficits noted. ASSESSMENT AND PLAN: 1. Right foot wound and right lower extremity cellulitis. As mentioned above in HPI, the patient was just recently admitted for this in February. He did undergo surgical debridement and removal of right foot hardware by Dr. Corona. He has been following up with Dr. Corona in his office since that time. Given this, we will place a consult with Dr. Corona, and will await his evaluation and further recommendations for management. We will place the patient NPO, and we will hold his Xarelto until he is evaluated by Orthopedic surgery. We have placed him on antibiotic coverage of vancomycin and Zosyn. Blood cultures and wound cultures have been obtained. We will provide pain control as well. We also will place a wound care consult as well. 2. Diabetes mellitus type 2. We will implement a sliding scale regular insulin. We will do pattern fingerstick blood sugars. 3. History of deep venous thrombosis. They did perform bilateral lower extremity venous Doppler's in the ER, which were reported to be negative, though we are awaiting the official report. We are holding his Xarelto only at this time until he is evaluated by Orthopedic surgery in the morning just in case he requires any surgical debridement of his right foot. 4. Hypertension. We will continue his lisinopril. Patient has been placed on the medical floor with telemetry. He will have vital signs q.8 hours. We will do strict intake and output. Repeat a CBC and BMP in the morning. Further orders and recommendations pending hospital course, diagnostic studies, and physician evaluation. Dictated by VAZQUEZ Dawson for Carlos A Buck MD I have performed a face to face diagnostic evaluation. Labs/ Xrays- reviewed. Exam- chest - clear, Ext- RLE- erythema. A/P- RLE cellulitis- Admit, IV ABX. Dr. Buck cc: Carlos A Buck MD [facility]
[2019-05-07] MEDS: HUMULIN R SUBQ SCH ×4 (06:41→21:29)
[2019-05-07] MEDS: NORCO-7.5 PO PRN ×2 (06:47→11:08)
[2019-05-07] MEDS: NEURONTIN PO SCH ×4 (08:26→21:28)
[2019-05-07] MEDS: PRINIVIL PO SCH (08:26)
[2019-05-07 08:48] LABS: BASO# 0.01 X1000 (0.0-0.2); BASO% 0.2 % (0.0-0.8); EOS# 0.18 X1000 (0.0-0.7); EOS% 2.9 % (0.0-10.0); HEMATOCRIT 29.4 % (42.0-52.0); HEMOGLOBIN 10.5 g/dL (14.0-18.0); LYMPH# 1.22 X1000 (1.2-3.4); LYMPH% 19.7 % (20.5-51.1); MCH 31.4 PG (27-31); MCHC 35.7 g/dL (33-37); MONO# 0.44 X1000 (0.11-0.59); MONO% 7.1 % (1.7-9.3); MPV 9.3 FL (7.4-10.4); NEUT# 4.34 X1000 (1.4-6.5); NEUT% 70.1 % (42.2-75.2); PLT 170 X1000 (130-400); RBC 3.34 XMIL (4.7-6.1); RDW 13.3 % (11.5-14.5); WBC 6.19 X1000 (4.8-10.8)
[2019-05-07 09:22] LABS: AGAP 10; BUN 17 mg/dL (8-22); CHLORIDE 96 mmol/L (98-107); COSMO 277; CREATININE 1.2 mg/dL (0.7-1.2); ESTIMATED GFR > 60; GLUCOSE 293 mg/dL (70-104); POTASSIUM 4.1 mmol/L (3.5-5.1); SODIUM 132 mmol/L (136-145); TCO2 26 mmol/L (25-35)
[2019-05-07] MEDS: MORPHINE IV PRN ×3 (14:19→22:27)
[2019-05-07] MEDS: VANCOMYCIN 1,600 MG in NS 250 ML IV SCH (14:26)
--- NOTE | 2019-05-07 16:30 | Diag Imaging Result Doc PS360 ---
MRI LOWER EXT JT W/O CON-RIGHT - 05/07/2019 INDICATION: right foot cellulitis TECHNIQUE: MRI right foot COMPARISON: X-rays from 05/06/2019 FINDINGS: There is extensive patient motion artifact. There is also extensive artifact from the hardware in the patient's foot. There is extremely severe degenerative irregularity of all the mid tarsal joints. The ankle joint is also affected as well as the subtalar joints. No obvious bone marrow edema. No obvious mass or fluid collection. There is moderate soft tissue swelling about the right foot consistent with pedal edema. IMPRESSION: Extremely severe chronic changes. Moderate pedal edema. No obvious osteomyelitis. Electronically signed by Antonio Del Toro 05/07/2019 4:27 PM
--- NOTE | 2019-05-07 18:16 | PROGRESS NOTE ---
DATE: 05/07/2019 SUBJECTIVE: Patient has no major complaints. OBJECTIVE: Vital signs: Blood pressure is stable at 118/75, heart rate 77, respirations 14, temperature 97.9 degrees, 100% on room air. Cardiovascular: Regular rate and rhythm. Pulmonary: Bilateral breath sounds. Clear to auscultation. GI: Soft, nondistended. Bowel sounds are positive. LABORATORY DATA: White count 6, hemoglobin and hematocrit 10 and 29, platelets of 170,000. Sodium is 132. Glucose is down to 293. PROBLEM LIST: 1. Diabetic foot ulcer, followed by Dr. Corona. I think he is planning to do I D. We will continue vancomycin and Zosyn until cultures come back, which is growing a gram-negative yoli, so we will hopefully be able to identify a bug. 2. Diabetes. We will continue regular medications. Obviously, tight control is ruano here with sugars; we are looking now at least below 150. We will continue to monitor. 3. Disposition. Pending wound care. Dr. Corona has described an I D tomorrow and then another couple days of antibiotics. We will continue to follow closely. cc: Osvaldo Chavez MD
--- NOTE | 2019-05-07 19:55 | ORTHOPAEDICS CONSULTATION ---
DATE: 05/07/2019 REASON FOR CONSULTATION: Right foot cellulitis. HISTORY OF PRESENT ILLNESS: Mr. Jones is a 38-year-old male with a past medical history of type 2 diabetes, hyperlipidemia, hypertension, history of DVT, and previous right foot osteomyelitis. Mr. Jones is well known to Dr. Corona. Most recently, in 02/08/2019, he came in with another right foot wound and Dr. Corona did a right foot irrigation and debridement as well as hardware removal from the foot. He did still have some hardware left in the foot after that. Apparently, Mr. Jones was doing well and had been following up with Dr. Corona in clinic and receiving local wound care up until Saturday. He states he was taking a nap when he woke up from his nap, he had extreme pain in the right lower extremity. He states he had some drainage over the last couple weeks, but it really increased over the last 2 days. He states on Saturday he realized he had to come to the ER. He came to the [facility] Emergency Room with complaints of drainage and pain to that right lower extremity. In the ER, he was noted to have a right foot wound with purulent drainage as well as a foul odor. He was admitted at that time for further evaluation and treatment. Orthopedics has been consulted for evaluation of his right foot. REVIEW OF SYSTEMS: A 10 point review of systems completed and negative except what was mentioned in the HPI. PAST MEDICAL HISTORY: 1. Diabetes mellitus type 2. 2. Hyperlipidemia. 3. Primary essential hypertension. 4. History of DVT. 5. History of right foot osteomyelitis. 6. Charcot neuropathy. PAST SURGICAL HISTORY: 1. Several right foot surgeries include Charcot reconstruction and right foot hardware removal. 2. Appendectomy. 3. Hernia repair. 4. Left toe amputation. SOCIAL HISTORY: The patient denies tobacco, alcohol, or illicit drug use. FAMILY HISTORY: Noncontributory. ALLERGIES: No known drug allergies. HOME MEDICATIONS: 1. Lipitor 40 mg p.o. at bedtime. 2. Gabapentin 400 mg p.o. 4 times a day. 3. Amaryl 4 mg p.o. daily. 4. Lisinopril 10 mg p.o. daily. 5. Metformin 1000 mg p.o. b.i.d. 6. Xarelto 20 mg p.o. at bedtime. 7. Ultram 50 mg p.o. t.i.d. 8. Trazodone 100 mg p.o. at bedtime. DIAGNOSTIC DATA: White count is 6.19, hemoglobin and hematocrit 10.5 and 29.4, platelet count 170,000. Last INR is 1.33. BUN and creatinine 17 and 1.2. His glucose is 293. On admission it was 460. X-RAYS: A right foot x-ray did show postsurgical changes, but no obvious evidence of osteomyelitis. ASSESSMENT: Right diabetic foot ulcer with Charcot neuropathy. PLAN: We took down the dressing and looked at the wound today. It is draining purulent drainage and does have a foul odor. It is difficult to see how deep that area probes. We do think that he is going to need an irrigation and debridement in the OR. We are going to go ahead and get an MRI just to see the extent of the infection. We do assume he does have osteomyelitis again. After reviewing the MRI, we will be able to see if we need to remove more hardware or not. We are going to make him NPO at midnight tonight. I will put him on a diabetic diet for the rest of the day. We will review the MRI and get consents tomorrow. We will plan on doing a right foot irrigation and debridement with possible hardware movement tomorrow. Dr. Corona did discuss risks and benefits of the procedure. Mr. Jones is aware that there are obvious risks of infection, poor wound healing, and risk of amputation whether we do surgery or not. We will plan to check on him first thing in the morning, and review the MRI. We will make a more definitive plan at that time. Dictated by VAZQUEZ Acosta for Talib Corona MD cc: VAZQUEZ Acosta MD
[2019-05-07] MEDS: LANTUS INSULIN SUBQ SCH (21:28)
[2019-05-07] MEDS: LIPITOR PO SCH (21:28)
[2019-05-08] MEDS: VANCOMYCIN 1,600 MG in NS 250 ML IV SCH (02:32)
[2019-05-08] MEDS: ZOSYN 3.375 GM in NS 50 ML IV SCH ×5 (06:08→20:25)
[2019-05-08] MEDS: HUMULIN R SUBQ SCH ×4 (06:09→20:28)
--- NOTE | 2019-05-08 08:22 | ORTHOPAEDICS PROGRESS NOTE ---
DATE: 05/08/2019 SUBJECTIVE: Mr. Jones is lying in bed resting this morning. OBJECTIVE: Right lower extremity exam: There was a lot of skin around the foot. There is a little bit of an odor there and a little bit of drainage on the dressing but not much. There is not really a lot of erythema around the foot today, and not a lot of swelling to the rest of the foot. IMAGING: MRI right lower extremity shows a lot of postsurgical changes. I did not see any areas of osteomyelitis. ASSESSMENT: Right diabetic foot ulcer. PLAN: I excisionally debrided the ulcer at bedside today. We will start wound dressings. I will consult Smitha, our wound nurse, and we will do Vashe at first to try to sterilize the wound. Dr. Gutiérrez is on board for cellulitis and IV antibiotics. He is on IV antibiotics right now. Hopefully we can get this infection eradicated and get him healed up. Orthopedics will continue to follow. Right now though, we will plan on treating this nonoperatively and doing bedside debridements as needed. cc: Talib Corona MD
[2019-05-08 08:28] LABS: BASO# 0.04 X1000 (0.0-0.2); BASO% 0.9 % (0.0-0.8); EOS# 0.24 X1000 (0.0-0.7); EOS% 5.3 % (0.0-10.0); HEMATOCRIT 28.5 % (42.0-52.0); HEMOGLOBIN 9.8 g/dL (14.0-18.0); LYMPH# 1.31 X1000 (1.2-3.4); LYMPH% 28.9 % (20.5-51.1); MCH 31.1 PG (27-31); MCHC 34.4 g/dL (33-37); MCV 90.5 FL (81-99); MONO# 0.28 X1000 (0.11-0.59); MONO% 6.2 % (1.7-9.3); MPV 9.4 FL (7.4-10.4); NEUT# 2.66 X1000 (1.4-6.5); NEUT% 58.7 % (42.2-75.2); PLT 193 X1000 (130-400); RBC 3.15 XMIL (4.7-6.1); RDW 13.3 % (11.5-14.5); WBC 4.53 X1000 (4.8-10.8)
--- NOTE | 2019-05-08 08:31 | OPERATIVE NOTE ---
PROCEDURE DATE: 05/08/2019 PREOPERATIVE DIAGNOSIS: Right diabetic foot ulcer. POSTOPERATIVE DIAGNOSIS: Right diabetic foot ulcer. PROCEDURE: Right bedside excisional debridement of diabetic foot ulcer. SURGEON: Dr. Talib Corona. WEEKEND RECEPTIONIST: None. IMPLANTS: None. DISPOSITION: Stable. DESCRIPTION OF PROCEDURE: Using forceps and scissors, I excisionally debrided the skin and some of the subcutaneous tissue to the right foot and we got back to healthy-appearing tissue. We did not debride down to the level of bone. The patient tolerated the procedure well. No complications. cc: Talib Corona MD
[2019-05-08 09:17] LABS: AGAP 10; BUN 13 mg/dL (8-22); CHLORIDE 104 mmol/L (98-107); COSMO 284; CREATININE 1.2 mg/dL (0.7-1.2); ESTIMATED GFR > 60; GLUCOSE 247 mg/dL (70-104); POTASSIUM 4.1 mmol/L (3.5-5.1); SODIUM 138 mmol/L (136-145); TCO2 24 mmol/L (25-35)
[2019-05-08] MEDS: NEURONTIN PO SCH ×4 (09:26→20:26)
[2019-05-08] MEDS: PRINIVIL PO SCH (09:26)
--- NOTE | 2019-05-08 15:02 | PROGRESS NOTE ---
DATE: 05/08/2019 SUBJECTIVE: Patient has no major complaints. OBJECTIVE: Vital Signs: Blood pressure 126/68, heart rate 85, respiratory rate 20, and temperature was 98.6 degrees. Cardiovascular: Regular rate and rhythm. Pulmonary: Bilateral breath sounds clear to auscultation. GI: Soft, nontender, and nondistended. Bowel sounds are positive. His leg is wrapped in gauze. LABORATORY DATA: White count is 4.5, hemoglobin and hematocrit 9 and 28, and platelets 193,000. Basic was normal. Sugar 236. PROBLEM LIST: 1. Diabetic foot ulcer with gram-negative rods. We will continue empiric antibiotics and follow. I am going to hold his vancomycin because he has got gram negatives growing. 2. Type 2 diabetes, not under complete control, but his A1c is only 7.5, but his admission blood sugar was 460. We will continue wound care. He is status post debridement today per Dr. Corona. We will continue to follow with him. DISPOSITION: I anticipate discharge at the regulation of Orthopedics in the next couple of days. I have started Lantus on him. It is not clear what all he takes, but I am going to resume his metformin and glimepiride. We will continue to follow. cc: Osvaldo Chavez MD
[2019-05-08] MEDS ORDERED: VANCOMYCIN 1,600 MG in NS 250 ML IV SCH ×2 (16:00→20:00)
[2019-05-08] MEDS: GLUCOPHAGE PO SCH (17:09)
[2019-05-08] MEDS: AMARYL PO SCH (19:57)
[2019-05-08] MEDS: LIPITOR PO SCH (20:26)
[2019-05-08] MEDS: LANTUS INSULIN SUBQ SCH (20:30)
[2019-05-09] MEDS: ZOSYN 3.375 GM in NS 50 ML IV SCH ×2 (02:39→14:28)
[2019-05-09 05:15] LABS: BASO# 0.03 X1000 (0.0-0.2); BASO% 0.6 % (0.0-0.8); EOS% 3.7 % (0.0-10.0); HEMATOCRIT 30.8 % (42.0-52.0); HEMOGLOBIN 10.9 g/dL (14.0-18.0); IMM GRAN# 0.02 X1000 (0.0-0.04); IMM GRAN% 0.4 % (0.0-0.5); LYMPH# 1.85 X1000 (1.2-3.4); LYMPH% 34.3 % (20.5-51.1); MCH 31.4 PG (27-31); MCHC 35.4 g/dL (33-37); MCV 88.8 FL (81-99); MONO# 0.35 X1000 (0.11-0.59); MONO% 6.5 % (1.7-9.3); NEUT# 2.94 X1000 (1.4-6.5); NEUT% 54.5 % (42.2-75.2); PLT 230 X1000 (130-400); RBC 3.47 XMIL (4.7-6.1); RDW 12.9 % (11.5-14.5); WBC 5.39 X1000 (4.8-10.8)
[2019-05-09] MEDS: NORCO-10 PO PRN ×2 (05:52→20:46)
[2019-05-09] MEDS: HUMULIN R SUBQ SCH ×4 (06:02→20:32)
[2019-05-09 06:29] LABS: AGAP 10; BUN 9 mg/dL (8-22); CALCIUM 9.6 mg/dL (8.8-10.2); CHLORIDE 98 mmol/L (98-107); COSMO 286; CREATININE 1.2 mg/dL (0.7-1.2); ESTIMATED GFR > 60; GLUCOSE 371 mg/dL (70-104); POTASSIUM 4.8 mmol/L (3.5-5.1); SODIUM 136 mmol/L (136-145); TCO2 28 mmol/L (25-35)
[2019-05-09] MEDS: PRINIVIL PO SCH (09:00)
[2019-05-09] MEDS: AMARYL PO SCH (09:00)
[2019-05-09] MEDS: GLUCOPHAGE PO SCH ×2 (09:00→16:59)
[2019-05-09] MEDS: NEURONTIN PO SCH ×4 (09:00→20:32)
[2019-05-09] MEDS: KEFZOL 2 GM/D5W 2 GM/50 ML IVPB IV SCH ×2 (12:36→20:32)
--- NOTE | 2019-05-09 13:20 | Extremity Venous Study ---
PROCEDURE NAME: Venous U/S Bilateral Legs - 05/06/2019 REQUESTING PHYSICIAN: Dr. Guerrero. CHALK TESTER: David. INDICATIONS: 1. History of DVT. 2. Edema and leg pain. 3. Infected foot. EQUIPMENT: Alfrescoid E9 ultrasound system with a 9 L-D transducer. FINDINGS: Images of the bilateral lower extremity venous systems were obtained in both sagittal and transverse planes. Doppler was used to evaluate veins for spontaneity, phasicity, respiratory excursion, and digital augmentation. RESULTS: There appears to be some prominent lymph nodes noted in the right groin, which I would recommend handling clinically. The venous system itself appears to be without pathology. INTERPRETATION: Lymphadenopathy noted in the right groin, which I would recommend handling clinically. From a venous standpoint, no pathology noted. cc: Sarthak Banda MD
--- NOTE | 2019-05-09 15:55 | PROGRESS NOTE ---
DATE: 05/09/2019 SUBJECTIVE: Patient has no major complaints, patient is stable. OBJECTIVE: Blood pressure 150/86, heart rate of 80, respiratory 18, temperature 98.6 degrees . Cardiovascular: Regular rate, rhythm. Pulmonary: Bilateral breath sounds clear to auscultation. GI: Soft, nontender, nondistended. Bowel sounds are positive. His extremity he has got a large superficial area with pink granulation tissue in the superficial ulceration. It is on the lateral aspect of the sole of his foot on the right foot. He does have a penetrating kind of ulcer which is weeping purulent fluid, that tissue is still draining and there is still active draining on the pad. PROBLEM LIST: 1. Diabetic foot ulcer. We will continue treatment, maximize wound care and diabetic control. He is growing out Proteus mirabilis which is pansensitive. I have switched him to Kefzol with a goal of doing Keflex at home and be cheapest alternative. There is no osteo at this point. 2. Type 2 diabetes still not under great control. He is on metformin although not maxed out. We have added Lantus as well and I am going to go up on his metformin and we may have to go up on his Lantus. 3. Hypertension. Continue regular medications and follow. DISPOSITION: Pending his clinical status home when orthopedics releases him, which I anticipate probably will be Saturday. We will continue treatment at that point. I do not think he requires IV antibiotics at this time. cc: Osvaldo Chavez MD
[2019-05-09] MEDS: LIPITOR PO SCH (20:32)
[2019-05-09] MEDS ORDERED: LANTUS INSULIN SUBQ SCH (21:00)
[2019-05-10] MEDS: KEFZOL 2 GM/D5W 2 GM/50 ML IVPB IV SCH ×3 (04:39→20:23)
[2019-05-10] MEDS: HUMULIN R SUBQ SCH ×4 (06:34→20:35)
[2019-05-10 07:40] LABS: BASO# 0.01 X1000 (0.0-0.2); BASO% 0.2 % (0.0-0.8); EOS# 0.23 X1000 (0.0-0.7); EOS% 3.7 % (0.0-10.0); HEMATOCRIT 28.1 % (42.0-52.0); HEMOGLOBIN 9.8 g/dL (14.0-18.0); IMM GRAN# 0.03 X1000 (0.0-0.04); IMM GRAN% 0.5 % (0.0-0.5); LYMPH# 2.11 X1000 (1.2-3.4); LYMPH% 34.3 % (20.5-51.1); MCH 30.6 PG (27-31); MCHC 34.9 g/dL (33-37); MCV 87.8 FL (81-99); MONO# 0.33 X1000 (0.11-0.59); MONO% 5.4 % (1.7-9.3); MPV 8.5 FL (7.4-10.4); NEUT# 3.45 X1000 (1.4-6.5); NEUT% 55.9 % (42.2-75.2); PLT 211 X1000 (130-400); RDW 12.7 % (11.5-14.5); WBC 6.16 X1000 (4.8-10.8)
[2019-05-10 08:01] LABS: AGAP 11; BUN 10 mg/dL (8-22); CALCIUM 9.3 mg/dL (8.8-10.2); CHLORIDE 95 mmol/L (98-107); COSMO 278; CREATININE 1.1 mg/dL (0.7-1.2); ESTIMATED GFR > 60; GLUCOSE 324 mg/dL (70-104); POTASSIUM 3.6 mmol/L (3.5-5.1); SODIUM 133 mmol/L (136-145); TCO2 27 mmol/L (25-35)
[2019-05-10] MEDS: AMARYL PO SCH (10:00)
[2019-05-10] MEDS: NEURONTIN PO SCH ×4 (10:01→20:22)
[2019-05-10] MEDS: PRINIVIL PO SCH (10:01)
[2019-05-10] MEDS: GLUCOPHAGE PO SCH ×2 (10:05→16:02)
[2019-05-10] MEDS ORDERED: HUMULIN N SUBQ ONE (11:11)
--- NOTE | 2019-05-10 17:02 | PROGRESS NOTE ---
DATE: 05/10/2019 SUBJECTIVE: Patient has no major complaints. OBJECTIVE: Vital Signs: Blood pressure is 156/95. LABORATORY DATA: White count 6. Hemoglobin and hematocrit 9 and 28. Platelets 211. Sodium 133. Glucose 324. Creatinine is 1.1. PROBLEM LIST: 1. Diabetic foot ulcer. We will continue wound care. It is Proteus mirabilis, and he is currently on Kefzol. We will change to Keflex when ready for discharge. Orthopedics has not seen him in a couple of days. Hopefully, check on him tomorrow and decide about being able to discharge. 2. Type 2 diabetes. We will continue medications and follow closely. Sugars are better but still really not that well controlled. I bumped up his metformin to 1 g b.i.d. The glimepiride I think is at max dose. I really do think he probably needs insulin at this point, because I do not really see how we are going to achieve control otherwise. I have put him on NPH 15 b.i.d., and we will see how he does. cc: Osvaldo Chavez MD
[2019-05-10] MEDS: DESYREL PO SCH (20:22)
[2019-05-10] MEDS: LIPITOR PO SCH (20:23)
[2019-05-10] MEDS: ULTRAM PO PRN (20:34)
[2019-05-10] MEDS: HUMULIN N SUBQ SCH (20:36)
[2019-05-11] MEDS: KEFZOL 2 GM/D5W 2 GM/50 ML IVPB IV SCH ×3 (03:31→21:25)
[2019-05-11] MEDS: HUMULIN R SUBQ SCH ×4 (06:09→21:55)
[2019-05-11] MEDS: PRINIVIL PO SCH (09:07)
[2019-05-11] MEDS: AMARYL PO SCH (09:07)
[2019-05-11] MEDS: NEURONTIN PO SCH ×4 (09:07→21:25)
[2019-05-11] MEDS: HUMULIN N SUBQ SCH ×2 (09:08→21:54)
[2019-05-11] MEDS: ULTRAM PO PRN ×2 (09:16→21:28)
[2019-05-11] MEDS: GLUCOPHAGE PO SCH ×2 (10:07→17:07)
--- NOTE | 2019-05-11 12:54 | ORTHOPAEDICS PROGRESS NOTE ---
DATE: 05/11/2019 SUBJECTIVE: Matti Jones is a 38-year-old male on whom Dr. Corona did a bedside debridement last week. He has no complaints, states his foot is looking better, and he seems to be improving. OBJECTIVE: He is a well-developed, well-nourished male. He is alert, oriented, and cooperative with the exam. His foot has brisk capillary refill, and he can flex and extend his toes. His dressing is intact. This are no signs of drainage his drain was changed earlier today. ASSESSMENT: Stable right foot infection. PLAN: Dr. Corona will be back tomorrow to reassess him and see if he needs to be debrided in the OR. cc: Billy Gruber MD
--- NOTE | 2019-05-11 17:48 | PROGRESS NOTE ---
DATE: 05/11/2019 SUBJECTIVE: The patient has no major complaints. He is sitting up in bed. OBJECTIVE: Vital Signs: Blood pressure is 157/84, heart rate of 78, respiratory rate of 16, temperature 97.8 degrees. Cardiovascular: Regular rate and rhythm. Pulmonary: Bilateral breath sounds. Clear to auscultation. Gastrointestinal: Soft, nontender, nondistended. Bowel sounds are positive. LABORATORY DATA: White count, I do not have any data today, but it has been pretty stable. PROBLEM LIST: 1. Diabetic foot ulcer with Proteus mirabilis positive wound culture. He is currently on cefazolin. We will change him to Keflex. 2. Type 2 diabetes. We will continue his blood sugar management. He is much better on metformin. We have increased his glimepiride, and he has also been placed on NPH, which I would recommend him going home on. DISPOSITION: Anticipate if he does not need debridement, we can discharge him on Keflex tomorrow, but that will be at the discretion of Dr. Corona. cc: Osvaldo Chavez MD [facility]
[2019-05-11] MEDS: LIPITOR PO SCH (21:25)
[2019-05-11] MEDS: DESYREL PO SCH (21:25)
[2019-05-12] MEDS: KEFZOL 2 GM/D5W 2 GM/50 ML IVPB IV SCH ×2 (04:06→11:14)
[2019-05-12] MEDS: HUMULIN R SUBQ SCH ×2 (06:56→11:14)
--- NOTE | 2019-05-12 07:36 | ORTHOPAEDICS PROGRESS NOTE ---
DATE: 05/12/2019 SUBJECTIVE: Mr. Jones is lying in bed this morning, overall feeling okay. OBJECTIVE: Right lower extremity exam, dressing was taken down. Most of the wound actually is looking better. There is good granulation tissue there. There is 1 small area on the plantar aspect that goes a little bit deep. I did not see any active drainage out of it this morning and there is not really any swelling to the foot either. It does not probe to bone either. ASSESSMENT: Right diabetic foot ulcer. PLAN: I am okay with Mr. Jones being discharged home once he is set up with antibiotic therapy. He is nonweightbearing right lower extremity. I think the wound is looking a little bit better. I did discuss with him it will take a long time for the plantar ulceration to heal since it is a little bit deep and we will more than likely have to do total contact casting when he comes to the clinic. I would like to see him in a week and we will start total contact casting at that time. cc: Talib Corona MD
[2019-05-12 08:18] VITALS: BP 144/87
[2019-05-12] MEDS: PRINIVIL PO SCH (09:58)
[2019-05-12] MEDS: AMARYL PO SCH (09:58)
[2019-05-12] MEDS: GLUCOPHAGE PO SCH (09:58)
[2019-05-12] MEDS: NEURONTIN PO SCH (09:58)
[2019-05-12] MEDS: HUMULIN N SUBQ SCH (09:59)
--- NOTE | 2019-05-12 15:28 | DISCHARGE SUMMARY ---
ADMISSION DATE: 05/06/2019 DISCHARGE DATE: 05/12/2019 DISCHARGE DIAGNOSES: 1. Diabetic foot ulcer with Proteus mirabilis positive wound culture. 2. Type 2 diabetes. 3. Hypertension. 4. History of deep vein thrombosis. 5. Dyslipidemia. CONSULTATIONS: Dr. Corona. PROCEDURE: Bedside debridement. HOSPITAL COURSE: Briefly, this is a 38-year-old gentleman with a chronic diabetic foot that looks like almost Charcot type situation who presented with hyperglycemia, fever, purulent drainage from a plantar wound that had been there several days. He has had issues with diabetic foot ulcers before. X-ray did not show any osteomyelitis and MRI confirmed there was no cellulitis. Ultrasound did not show any DVT. He had some lymphadenopathy which is to be expected. Culture of the wound yielded Proteus mirabilis from the culture on the that was pansensitive. The patient was switched from Zosyn to cefazolin. Dr. Corona did a bedside I and D I believe on the , debrided some of the tissue. We continued wound care and antibiotics for several days. He clinically improved. No fevers. I am not sure he had much of a white count either. His sugars have been a bit difficult to control, but I do not think we are going to be able to control them with metformin alone so I initiated initially Lantus, but since he does not have insurance, we are going to do Novolin N 12 units b.i.d. I went up to 15 units, but his sugar dropped into the 90s. I am just concerned about hypoglycemia at home, although he may need further adjustment on down the line. Dr. Corona evaluated the patient on the day of discharge and was felt stable for discharge and plan to discharge on oral antibiotics. Follow up with him in a week. Follow up with his PCP in 1 to 2 weeks, that is Skye Neal. The patient will return for worsening pain, swelling, or fevers. DISCHARGE MEDICATIONS: Trazodone 100 at bedtime, Lipitor 40, Xarelto 20, glimepiride 4 daily, gabapentin 400 q.i.d., metformin 1 g b.i.d., lisinopril 10 daily, Ultram 50 t.i.d., Keflex 500 t.i.d. for 2 weeks, Novolin N 12 units subcutaneous b.i.d. Thirty-five minute discharge. cc: Osvaldo Chavez MD
== END 2019-05-12 13:32 | disposition home or self-care (01) | DRG 623 ==
LOC: ED 12:30 → SUATTDRO 21:25 → 1N 21:25
PROVIDERS: ATTEND Internal Medicine

== ENCOUNTER 2019-09-15 15:11 | Inpatient (IN) ==
[2019-09-15] MEDS ORDERED: ZOFRAN IV PRN (15:29)
[2019-09-15] MEDS ORDERED: VANCOMYCIN 1 GM/NS 1 GM/250 ML IVPB IV ONE (15:32)
[2019-09-15] MEDS ORDERED: VANCOMYCIN IV PER PHARMACY MISC SCH (15:45)
[2019-09-15] MEDS: HUMALOG SUBQ SCH ×2 (18:51→23:37)
[2019-09-15] MEDS ORDERED: LANTUS INSULIN SUBQ ONE (19:02)
[2019-09-15] MEDS: MAXIPIME 2 GM/NS 2 GM/100 ML IVPB IV SCH (20:20)
[2019-09-15] MEDS: DESYREL PO SCH (20:20)
[2019-09-15] MEDS: NEURONTIN PO SCH (20:20)
[2019-09-15] MEDS: ULTRAM PO PRN (23:35)
[2019-09-15] MEDS: VANCOMYCIN 2,000 MG in NS 500 ML IV SCH (23:48)
--- NOTE | 2019-09-16 00:49 | HISTORY AND PHYSICAL ---
ADDENDUM I have seen and examined Mr. Jones today. Mr. Jones is directly admitted from Dr. Corona's office because of an infected right lower extremity diabetic foot ulcer. We have been consulted for management of his other medical comorbidities. PHYSICAL EXAMINATION: CURRENT VITALS: Blood pressure is 168/95, pulse of 102, respirations 18, temperature 98.7 degrees. GENERAL: Mr. Jones is a 46-year-old, well-built gentleman. He is in bed, no distress. HEENT: Mucosa is pink and moist. EXTREMITIES: His physical exam is positive for the right foot being remarkably swollen and is erythematous all the way from the bottom to the top. There is some ulceration on the bottom. The base has good granulation tissue, but it has continued to exudate some mild purulence and it is remarkably tender. The left has a 2nd toe surgically amputated. LABORATORY DATA: The patient current glucose is 433. ASSESSMENT: 1. Right diabetic foot infected ulcer with possible bone involvement. The patient has had multiple pathogens grown from the foot before, so would start him more broadly and wait for the culture. We will also wait on Dr. Corona's evaluation to decide if the patient will eventually benefit from surgical intervention, including possible [id number] amputation. 2. Uncontrolled diabetes mellitus. We will start the patient on insulin regimen. For now, we will withhold the home oral hypoglycemic agents. We will also check on his A1c. 3. Hypertension. We will continue with home medications, including lisinopril. 4. Dyslipidemia. Patient is on atorvastatin. Please refer to the details of the history and physical that has been dictated by the PROJECT MANAGEMENT ADVISOR. I have seen and reviewed this and I have discussed the plan with her. cc: Petar Ramesh MD
[2019-09-16] MEDS: MAXIPIME 2 GM/NS 2 GM/100 ML IVPB IV SCH ×3 (03:43→20:07)
--- NOTE | 2019-09-16 04:15 | HISTORY AND PHYSICAL ---
DATE OF ADMISSION: 09/15/2019 REASON FOR CONSULTATION: Help with diabetic control. HISTORY OF PRESENT ILLNESS: Mr. Jones is a 38-year-old male with a past medical history of type 2 diabetes, hyperlipidemia, hypertension, history of DVT, and previous right foot osteomyelitis. He is well known to DR. Corona. He has had several issues with diabetic foot ulcers. Previous cultures yielded a Proteus mirabilis. Dr. Corona has done I and D's as well as hardware removal from his foot in the past. He has also been following him in the clinic and receiving local wound care. He went to his regular appointment today, and was admitted for right foot cellulitis and was initiated on vancomycin. He was hyperglycemic with a blood glucose of 461, and hospitalist was consulted for diabetic management. REVIEW OF SYSTEMS: Completely negative except for those mentioned in HPI. PAST MEDICAL HISTORY: Per HPI. PAST SURGICAL HISTORY: Several right foot surgeries include Charcot reconstruction and right foot hardware removal as well as I and D's, appendectomy, hernia repair, and left toe amputation. SOCIAL HISTORY: No tobacco, alcohol or illicit drug use. FAMILY HISTORY: Noncontributory. ALLERGIES: No known drug allergies. MEDICATIONS: Home medications are being compiled, but reports, Lipitor, gabapentin, Amaryl, lisinopril, metformin, Ultram, trazodone, and another diabetic injection. DIAGNOSTIC DATA: None. LABORATORY DATA: None. ASSESSMENT AND PLAN: 1. Type 2 diabetes with hyperglycemia. We will place him on high dose sliding scale with pattern blood sugars. Reinitiate him on his home medications. We will check a hemoglobin A1c. He reports that he is not following any type of diabetic diet. He does eat what he wants. He takes his medications most of the time. However, he reports that he does get dizzy and sometimes he does not remember to take them so there is a component of noncompliance. 2. Diabetic foot ulcer with cellulitis currently being treated with vancomycin per orthopedic team. I believe they did send off cultures from the office. 3. Hypertension. We will continue his home lisinopril. 4. Dyslipidemia. 5. Diabetic neuropathy. We will continue his home Neurontin. 6. History of DVT. 7. Further recommendations to follow physician evaluation, laboratory and diagnostic data. Dictated by VAZQUEZ Healy for Petar Ramesh MD cc: MD Petar Segovia MD [facility]
[2019-09-16] MEDS: HUMALOG SUBQ SCH ×7 (06:14→22:51)
[2019-09-16 07:12] LABS: HEMOGLOBIN A1C 10.5 % (4.8-6.0)
[2019-09-16 07:19] LABS: BASO# 0.02 X1000 (0.0-0.2); BASO% 0.4 % (0.0-0.8); EOS# 0.22 X1000 (0.0-0.7); EOS% 4.4 % (0.0-10.0); HEMATOCRIT 26.3 % (42.0-52.0); HEMOGLOBIN 8.8 g/dL (14.0-18.0); IMM GRAN# 0.03 X1000 (0.0-0.04); IMM GRAN% 0.6 % (0.0-0.5); LYMPH# 1.72 X1000 (1.2-3.4); LYMPH% 34.1 % (20.5-51.1); MCHC 33.5 g/dL (33-37); MCV 89.8 FL (81-99); MONO# 0.33 X1000 (0.11-0.59); MONO% 6.5 % (1.7-9.3); MPV 8.6 FL (7.4-10.4); NEUT# 2.73 X1000 (1.4-6.5); PLT 207 X1000 (130-400); RBC 2.93 XMIL (4.7-6.1); RDW 12.9 % (11.5-14.5); WBC 5.05 X1000 (4.8-10.8)
[2019-09-16 07:42] LABS: AGAP 9; ALBUMIN 3.2 g/dL (3.5-5.0); ALKALINE PHOSPHATASE 102 U/L (32-122); BUN 11 mg/dL (8-22); CALCIUM 8.8 mg/dL (8.8-10.2); CHLORIDE 97 mmol/L (98-107); COSMO 276; CREATININE 1.1 mg/dL (0.7-1.2); ESTIMATED GFR > 60; GLUCOSE 281 mg/dL (70-104); GOT 10 U/L (10-34); GPT 9 U/L (10-44); SODIUM 133 mmol/L (136-145); TCO2 27 mmol/L (25-35); TOTAL PROTEIN 6.4 g/dL (6.3-8.3)
[2019-09-16] MEDS ORDERED: GLUCOPHAGE PO SCH (08:00)
[2019-09-16] MEDS ORDERED: LANTUS INSULIN SUBQ SCH (09:00)
[2019-09-16] MEDS ORDERED: AMARYL PO SCH (09:00)
[2019-09-16] MEDS: VANCOMYCIN 2,000 MG in NS 500 ML IV SCH ×2 (09:45→21:16)
[2019-09-16] MEDS: PRINIVIL PO SCH (09:46)
[2019-09-16] MEDS: NEURONTIN PO SCH ×4 (09:46→20:07)
[2019-09-16] MEDS: ULTRAM PO PRN ×2 (11:18→17:25)
[2019-09-16] MEDS: NORCO-5 PO PRN ×2 (14:04→20:08)
--- NOTE | 2019-09-16 15:12 | Diag Imaging Result Doc PS360 ---
EXAM: MRI LOW EXTREMITY W/O CON-RIGHT INDICATION: osteomyelitis foot TECHNIQUE: COMPARISON: MRI of the foot dated 06/07/2019. FINDINGS: There are metallic lag screws in stable position two are in the calcaneus with one traversing the subtalar joint and two screws extend from the talus through the shaft of the first and second metatarsals. There are also rods in the second, third, and fourth proximal phalanges. This metallic hardware is causing susceptibility artifact. There is extensive degenerative irregularity involving the midtarsal joints that is assumed to be posttraumatic. This is stable. No focal marrow edema is identified that would indicate osteomyelitis. There is a soft tissue ulceration at the plantar aspect of the laterally. This is also seen on the previous study. There is surrounding soft tissue edema indicating cellulitis. No well-defined fluid collection is identified to indicate abscess given the limitations of an unenhanced study. The tendinous structures of the ankle remain intact. 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 No obvious sign of osteomyelitis. 2.Soft tissue ulceration at the plantar aspect of the foot with surrounding edema indicating cellulitis. Electronically signed by Onesimo Peña 09/16/2019 3:10 PM
--- NOTE | 2019-09-16 17:02 | PROGRESS NOTE ---
DATE: 09/16/2019 SUBJECTIVE: This morning Mr. Jones refers to be doing fairly okay. No new complaints. Orthopedics have not evaluated him yet today. OBJECTIVELY: Is vitals blood pressure is 149/88, pulse of 90, respirations 20, temperature is 98.4 degrees. The patient is saturating 99% on room air.General: Mr. Jones is a 38-year-old gentleman. He is in bed no distress. HEENT: Mucosa is pink and moist. Anicteric. Acyanotic. Neck: Supple. Chest: Clear to auscultation. There was no crepitations, no rhonchi. Cardiovascular Regular rate and rhythm. No murmurs, no rubs, no gallops. GI: Abdomen was soft, nontender. Bowel sounds present. There was nor any guarding, no rebound. Bowel sounds were present. No hepatosplenomegaly. Extremities: The right lower extremity has a dressing over the foot. The bottom of the foot dressing was soiled. The left has the 2nd toe surgically amputated. CNC OPERATOR: Patient is awake, alert, and oriented. LABORATORY DATA: Glucose was 281. A1c is 10.5. ASSESSMENT: 1. Right diabetic foot infected ulcer with possible osteomyelitis. The patient has been started on antibiotics. Orthopedics will evaluate for possible intervention. 2. Uncontrolled diabetes mellitus with presenting A1c of 10.5. The patient has been started on insulin regimen. 3. Hypertension controlled. 4. Dyslipidemia, will continue with atorvastatin. 5. Diabetic peripheral neuropathy patient is on gabapentin. 6. Normocytic anemia with a hemoglobin of 8.8, presumably due to anemia of chronic disease. We are going to continue to monitor hemoglobin and hematocrit. cc: Petar Ramesh MD
--- NOTE | 2019-09-16 19:00 | ORTHOPAEDICS PROGRESS NOTE ---
DATE: 09/16/2019 SUBJECTIVE: Mr. Jones is lying in bed this morning. Overall, he is actually feeling pretty well. OBJECTIVE: Right lower extremity exam: I took his dressing down which was soaked somewhat. He had a little bit more slough noted and that we just debrided using a gauze. That area did look a little bit deeper it did have some drainage to it. It did not look purulent. ASSESSMENT: 1. Right diabetic foot ulcer. 2. Cellulitis. PLAN: I am going to order an MRI in Mr. Jones's foot to really look for any osteomyelitis that may be there and see if there are any abscesses present. He is going to remain on the IV antibiotics. Then, we will decide on whether we need take him to surgery or not after the MRI. I am going to make him NPO after midnight tonight, just in case we need to do surgery on it tomorrow. cc: MD Petar Segovia MD
[2019-09-16] MEDS: DESYREL PO SCH (20:08)
[2019-09-17] MEDS: MAXIPIME 2 GM/NS 2 GM/100 ML IVPB IV SCH ×3 (04:22→23:07)
[2019-09-17 06:32] LABS: HEMATOCRIT 27.3 % (42.0-52.0); HEMOGLOBIN 9.1 g/dL (14.0-18.0); MCH 30.4 PG (27-31); MCHC 33.3 g/dL (33-37); MCV 91.3 FL (81-99); MPV 8.7 FL (7.4-10.4); RBC 2.99 XMIL (4.7-6.1); RDW 13.2 % (11.5-14.5); WBC 4.55 X1000 (4.8-10.8)
[2019-09-17] MEDS: HUMALOG SUBQ SCH ×7 (06:46→23:13)
[2019-09-17 07:19] LABS: AGAP 11; ALBUMIN 3.1 g/dL (3.5-5.0); BUN 15 mg/dL (8-22); CALCIUM 8.9 mg/dL (8.8-10.2); CHLORIDE 99 mmol/L (98-107); COSMO 289; CREATININE 1.1 mg/dL (0.7-1.2); ESTIMATED GFR > 60; GLUCOSE 330 mg/dL (70-104); PHOSPHORUS 3.8 mg/dL (2.7-4.5); POTASSIUM 4.3 mmol/L (3.5-5.1); SODIUM 138 mmol/L (136-145); TCO2 28 mmol/L (25-35)
[2019-09-17] MEDS: PRINIVIL PO SCH (09:00)
[2019-09-17] MEDS: ULTRAM PO PRN (09:00)
[2019-09-17] MEDS: NORCO-5 PO PRN ×2 (09:01→14:56)
[2019-09-17] MEDS: NEURONTIN PO SCH ×4 (09:01→23:12)
[2019-09-17] MEDS: LANTUS INSULIN SUBQ SCH (12:04)
--- NOTE | 2019-09-17 14:01 | ORTHOPAEDICS PROGRESS NOTE ---
DATE: 09/17/2019 SUBJECTIVE: Mr. Jones is lying in bed this morning. Overall feeling okay. OBJECTIVE: Right lower extremity exam, there was some drainage on the dressing. I did change his dressing this morning. I can see a fairly large wound on the plantar aspect of the foot. There is granulation tissue around the whole area. Nothing probes to bone. He has a little bit of swelling to the foot. IMAGING: MRI was reviewed, which shows soft tissue swelling. I do not see any signal change in the bone at all. ASSESSMENT: 1. Right foot diabetic foot ulcer with cellulitis. 2. Uncontrolled diabetes. PLAN: I discussed with Mr. Jones about his foot. I do not think we need to go in and debride any bone as I did not see any evidence of osteomyelitis there. We will mainly treat him with IV antibiotics and really get his sugars under control. I am going to get a Wound Care consult as well and will continue to follow. I am okay with him having a diabetic diet. cc: MD Petar Segovia MD
[2019-09-17] MEDS: VANCOMYCIN 1,600 MG in NS 250 ML IV SCH (14:57)
--- NOTE | 2019-09-17 19:12 | PROGRESS NOTE ---
DATE: 09/17/2019 SUBJECTIVE: This morning, Mr. Jones referred to be doing well. No new complaints. OBJECTIVE: Vital signs: Blood pressure was 131/70, pulse of 80, respirations 18, temperature 98.6 degrees. General: Mr. Jones is a 38-year-old gentleman who was in bed in no distress. HEENT: Mucosa is pink and moist. Anicteric. Acyanotic. Neck: Supple. Chest: Good air entry bilaterally. There were no crepitations, no rhonchi. Cardiovascular: Regular rate and rhythm. No murmurs, no rubs, no gallops. GI: Abdomen was soft, nontender. Bowel sounds present. No hepatosplenomegaly. Extremities: Right lower extremity still has some dressing over the foot on the bottom side. It looked minimally soiled. The left has the 2nd toe surgically amputated. MANAGER NURSING: Patient is awake, alert, and oriented. LABORATORY DATA: Has been reviewed. Glucose is 330. ASSESSMENT: 1. Right diabetic foot ulcer. MRI has not shown any osteomyelitis. The patient is currently on cefepime and vancomycin. We will get Infectious Disease to evaluate him. 2. Uncontrolled diabetes mellitus, with presenting A1c of 10.5. We will continue to titrate his insulin regimen. 3. Hypertension, controlled. 4. Dyslipidemia. The patient is on atorvastatin. 5. Diabetic peripheral neuropathy. We will continue with gabapentin. 6. Normocytic anemia of chronic disease. PLAN: In general, I think Mr. Jones is doing well. His MRI, which was done yesterday, did not show any osteomyelitis. Orthopedics note today seems to suggest to continue with medical management. We will consult Infectious Disease to evaluate Mr. Jones tomorrow and to determine the length of therapy with antimicrobials. cc: Petar Ramesh MD MTDD
[2019-09-17] MEDS: DESYREL PO SCH (23:11)
[2019-09-18] MEDS: VANCOMYCIN 1,600 MG in NS 250 ML IV SCH ×2 (01:04→14:42)
[2019-09-18] MEDS: MAXIPIME 2 GM/NS 2 GM/100 ML IVPB IV SCH (05:21)
[2019-09-18] MEDS: HUMALOG SUBQ SCH ×7 (06:34→21:47)
[2019-09-18] MEDS: NORCO-5 PO PRN ×4 (07:59→21:48)
[2019-09-18] MEDS: LANTUS INSULIN SUBQ SCH ×2 (07:59→11:23)
[2019-09-18] MEDS: PRINIVIL PO SCH (07:59)
[2019-09-18] MEDS: NEURONTIN PO SCH ×4 (07:59→21:48)
[2019-09-18 09:13] LABS: ALBUMIN 3.5 g/dL (3.5-5.0); PREALBUMIN 19.2 mg/dL (20-40)
--- NOTE | 2019-09-18 14:38 | ORTHOPAEDICS PROGRESS NOTE ---
DATE: 09/18/2019 SUBJECTIVE DATA: Mr. Jones is lying in bed. He states he understands his dressing changes and how to do them. He is wanting to go home. OBJECTIVE DATA: Right lower extremity exam, there was drainage that had come through on the dressing. This dressing was placed about 4 p.m. yesterday evening. We took the dressing down and overall the skin around the wound does look better. It is not as macerated and there is no erythema. The wound itself looks pretty terrible. He does have some swelling overall to the foot. There is a little bit of granulation tissue around the whole area but it just is not very healthy looking. He still has quite a bit of drainage. ASSESSMENT: 1. Right diabetic foot ulcer with cellulitis. 2. Uncontrolled diabetes mellitus. PLAN: The MRI did rule out any osteomyelitis to the bone. So we will continue to treat this just with local wound care. We did not debride anything today. We sent cultures from the office that so far resulted with gram-positive cocci. We will wait for culture and sensitivity on those and for now continue the vancomycin. Wound Care saw him yesterday and adjusted his dressing changes. We will continue do those daily and as needed for drainage. We are going to keep him in the hospital until we get that sensitivity back and can make sure we send him home on appropriate oral antibiotic therapy. I am also going to check his prealbumin and albumin to see if there is anything we can do from a dietary standpoint to increase his wound healing capacity. We will check on him in the morning. Dictated by VAZQUEZ Acosta for Talib Corona MD cc: VAZQUEZ Acosta MD Raphael K. Quansah, MD
--- NOTE | 2019-09-18 15:00 | INFECTIOUS DISEASE CONSULT REP ---
DATE: 09/18/2019 CONCLUSION: The patient has an infected right foot plantar ulcer. RECOMMENDATIONS: I agree with treating the patient with vancomycin. I have discontinued cefepime because the patient had a culture taken from his foot approximately [address] Corona's office and it is growing only gram-positive cocci which have not yet been identified. Some of the side effects of vancomycin including rash, renal toxicity, and ototoxicity have been explained to the patient who agrees with treatment. DISCUSSION: The patient for the past 6 months has had a right plantar foot ulcer. The ulcer has not recently been getting any better. The patient has been admitted to the hospital. The patient's CBC shows a white count of 4550, hemoglobin 9.1, and platelet count 170,000. The patient had his foot cultured at Dr. Corona's office about 3 days ago and is growing a gram- positive coccus. CBC shows a white blood cell count of 4550, hemoglobin 9.1, and platelet count 170,000. Creatinine is 1.1. GFR is greater than 60. MRI of the foot showed cellulitis but no osteomyelitis. The patient in the past has grown from his foot most recently, Staphylococcal Simulans and Pseudomonas. PAST MEDICAL HISTORY/REVIEW OF SYSTEMS: Eyes and ears: The patient hears well. He does wear glasses. Neck: No stiffness. Respiratory: No cough or shortness of breath. Cardiac: No chest pain or palpitations. Gastrointestinal: No nausea, vomiting, or diarrhea. Genitourinary: No dysuria or flank pain. Neurologic: No seizures. No loss of motor or sensory function. Integument: No rash. Bones, joints, muscle: See present illness. PREVIOUS HOSPITALIZATIONS AND OPERATIONS: He has had a hernia repair, appendectomy, and bilateral axillary area surgery due to infection. The patient also has had what he told me were metal bolts put in his right foot by Dr. Corona. MEDICAL DISEASES: Diabetes and hypertension. INFECTIOUS DISEASES: Positive for prior right foot infection and pneumonia. FAMILY HISTORY: Positive for diabetes mellitus, hypertension, myocardial infarction, and cancer. SOCIAL HISTORY[place] . He lives with his fiancee. He has dogs for pets. He has no drug allergies. He does dip snuff. He does not smoke cigarettes, abuse drugs or drink alcoholic beverages. The patient is disabled. HOME MEDICATIONS: Include the following: Lipitor, gabapentin, Amaryl, Prinivil, Glucophage, Xarelto, Ultram, and Desyrel. PHYSICAL EXAMINATION: Vital Signs: Temperature is 97.4 degrees, pulse 75, respirations 18, blood pressure 132/83. The patient is 6 feet 3 inches tall, weighs 214 pounds. General: This is an obese, young male. He is in no acute distress. Head/eyes/ears/nose/throat: He can hear my spoken words. He was wearing glasses and he can see near objects. Neck: No stiffness. Lungs: Clear to auscultation. Cardiovascular: Heart rate is regular. Abdomen: Soft and nontender. Extremities: The patient's right foot has a plantar ulcer that has beefy red tissue in it. It did not probe deep into the foot when I was examining it. Neurologic: The patient is alert. He can move his extremities. He has decreased sensation in his feet. There is no tremor. Integument: No rash. Thank you for the consult. cc: MD Petar Call MD [facility]
--- NOTE | 2019-09-18 16:21 | PROGRESS NOTE ---
DATE: 09/18/2019 SUBJECTIVE: This morning Mr. Jones refers to be doing okay. No new complaints. He has been evaluated by Infectious Disease. Cefepime has been discontinued. He is only on vancomycin. OBJECTIVE: Vital signs: Blood pressure is 150/92, pulse of 94, respirations 18, temperature 98.2 degrees. General: Mr. Jones is a 38-year-old gentleman. He is in bed, no distress. Mucosa is pink and moist. Anicteric. Acyanotic. Neck: Supple. Chest: Good air entry bilaterally. There are no crepitations, no rhonchi. Cardiovascular: Regular rate and rhythm. No murmurs, no rubs, no gallops. GI: Abdomen was soft, nontender. Bowel sounds present. Extremities: Right lower extremity is in dressing, minimally soiled. The left lower extremity has the 2nd toe surgically amputated. PROP SETTER: Patient is awake, alert, and oriented. LABORATORY DATA: Glucose showed it was 302. ASSESSMENT: 1. Right diabetic foot ulcer. MRI did not show any osteomyelitis. The culture is showing a gram- positive cocci, anaerobes were not isolated. Antibiotic cefepime has been discontinue. We will continue current on the vancomycin. 2. Uncontrolled diabetes mellitus. Presenting A1c is 10.5. Patient's insulin has been uptitrated. 3. Hypertension, controlled. 4. Dyslipidemia. Patient is on atorvastatin. 5. Diabetic peripheral neuropathy. We will continue with gabapentin. 6. Normocytic anemia of chronic disease. PLAN: In general, I think Mr. Jones is doing well. Glucose is still uncontrolled so we have gone up on the glargine insulin to 40. We will also continue with the pre meals and sliding scale. We are pending the gram-positive cocci in the wound to make further changes to the antimicrobial therapy. The patient is being seen by Orthopedics and Infectious Disease. cc: Petar Ramesh MD
[2019-09-18] MEDS: DESYREL PO SCH (21:48)
[2019-09-19] MEDS: VANCOMYCIN 1,600 MG in NS 250 ML IV SCH (02:42)
[2019-09-19] MEDS: HUMALOG SUBQ SCH ×7 (06:38→22:09)
[2019-09-19] MEDS: NEURONTIN PO SCH ×4 (09:12→22:08)
[2019-09-19] MEDS: LANTUS INSULIN SUBQ SCH (09:12)
[2019-09-19] MEDS: NORCO-5 PO PRN ×4 (09:12→22:08)
[2019-09-19] MEDS: PRINIVIL PO SCH (09:12)
--- NOTE | 2019-09-19 19:36 | PROGRESS NOTE ---
DATE: 09/19/2019 SUBJECTIVE: This morning Mr. Jones refers to be doing well, no new complaints. He thinks the right foot pain has significantly improved. OBJECTIVE: Vitals: Blood pressure is 126/66, pulse of 80, respiration is 16, temperature is 98 degrees. General: Mr. Jones 38-year-old gentleman he is in bed no distress. Mucosa is pink and moist. Anicteric, acyanotic. Neck: Supple. Chest: Good air entry bilaterally, there was no crepitations, no rhonchi. Cardiovascular: Regular rate and rhythm. No murmurs, no rubs, no gallops. Abdomen: Soft, nontender. Bowel sounds present. Extremities: No pedal edema. The left lower extremity has the 2nd toe surgically removed. The right lower extremity is in sterile dressing with minimum soiling. LABORATORY DATA: Glucose is 176 early this morning. The culture from the foot shows strep agalactia. ASSESSMENT: 1. Right diabetic foot ulcer associated with cellulitis. Culture positive for strep agalactia. Patient is currently on vancomycin, the pathogen is also sensitive to levofloxacin and think that can be switched to p.o. levo when patient is ready for discharge. Infectious Disease is on board and will defer recommendations to them. 2. Uncontrolled diabetes mellitus on presentation with A1c of 10.5. Patient is on insulin regimen. We will continue to titrate. 3. Hypertension controlled. 4. Dyslipidemia on atorvastatin. 5. Diabetic peripheral neuropathy. Patient is on gabapentin. 6. Normocytic anemia of chronic disease. cc: Petar Ramesh MD
[2019-09-19] MEDS: DESYREL PO SCH (22:08)
[2019-09-20] MEDS: HUMALOG SUBQ SCH ×7 (07:40→21:28)
[2019-09-20] MEDS: LANTUS INSULIN SUBQ SCH (09:13)
[2019-09-20] MEDS: NEURONTIN PO SCH ×4 (09:13→21:27)
[2019-09-20] MEDS: PRINIVIL PO SCH (09:14)
[2019-09-20] MEDS ORDERED: VANCOMYCIN 1,600 MG in NS 250 ML IV SCH (11:00)
--- NOTE | 2019-09-20 11:56 | PROGRESS NOTE ---
DATE: 09/20/2019 SUBJECTIVE: This morning, Mr. Jones referred to be doing well. He actually did not have any new complaints. He said he has been eating well and he thinks that the right foot wound is getting better. Denies any fever or chills. OBJECTIVE: Vital Signs: Blood pressure is 121/71, pulse of 80, respirations are 18, temperature is 98.0 degrees. General Examination: Mr. Jones is a 38-year-old, gentleman. He was in bed. No distress. HEENT: Mucosa is pink and moist. Anicteric. Acyanotic. Neck: Supple. Chest: Good air entry bilaterally. There were no crepitations. No rhonchi. Cardiovascular: Regular rate and rhythm. No murmurs, no rubs, no gallops. GI: Abdomen was soft, nontender. Bowel sounds were present. There is no hepatosplenomegaly. Extremities: No pedal edema. Left lower extremity has the second toe surgically removed. The right lower extremity has a sterile dressing with minimal soiling. The erythematous changes have all resolved. ENVIRONMENTAL SAFETY SPECIALIST: The patient was awake, alert, and oriented. Laboratory Data: Glucose is 284. ASSESSMENT: 1. Right diabetic foot ulcer associated with cellulitis with culture positive for Streptococcus agalactia. Patient is currently on vancomycin. I have discussed with infectious disease and there is a plan to switch him to a different antimicrobial coverage. 2. Uncontrolled diabetes mellitus. Presenting A1c was 10.5. Patient is currently on insulin regimen. Glucose is better controlled. 3. Hypertension, controlled. 4. Dyslipidemia. Will continue on atorvastatin. 5. Diabetic peripheral neuropathy. The patient is on gabapentin. 6. Normocytic anemia of chronic disease. PLAN: In general, I think Mr. Jones is doing well. He has Streptococcus agalactia in the culture. ID is aware. Antibiotics have been changed to ceftriaxone by ID. We will wait for the final arrangements from them for the home antimicrobial arrangements. cc: Petar Ramesh MD
[2019-09-20] MEDS: NORCO-5 PO PRN ×2 (12:31→18:05)
[2019-09-20] MEDS: ROCEPHIN 2 GM in NS 50 ML IV SCH (12:31)
[2019-09-20 14:30] LABS: INR 1.22; PROTIME 15.6 Seconds (11.0-16.0)
--- NOTE | 2019-09-20 15:21 | INFECTIOUS DISEASE PROGRESS NO ---
DATE: 09/20/2019 PRESENT ILLNESS: The patient has a group B streptococcal cellulitis of the right foot. MEDICATIONS: The patient was getting vancomycin. When I found out today that the patient's culture grew group B strep, I switched the patient to Rocephin. Some of the side effects of the antibiotic including rash and diarrhea have been explained to the patient. He agrees with treatment. PHYSICAL EXAMINATION: Vital Signs: Temperature is 98 degrees, pulse 80, respirations 18, blood pressure 121/71. General: This is an obese, young male. He is in no acute distress. Head/eyes/ears/nose/throat: He can hear my spoken words and see near objects. He does not have any white coating on his tongue. Neck: No pain with movement. Lungs: Clear to auscultation. Cardiovascular: Regular heart rate. Abdomen: Soft and nontender. Extremities: The patient's right foot has a large plantar ulcer. There is beefy red tissue present. There was no odor and no purulence. There was some serous drainage coming from the wound. LAB AND X-RAY: Culture from the foot as mentioned above grew group B Streptococcus. There is no CBC or creatinine done today. There is no new radiographic study done today. The prior MRI showed cellulitis but no osteomyelitis. ASSESSMENT AND PLAN: Patient has streptococcal cellulitis of the foot. The patient has a large plantar ulcer and it does go deep but not to the bone, but I think it would be best to send him home on Rocephin. I have discussed this with Dr. Ramesh and we agree and the patient agreed to receive the antibiotics intravenously for at least 3 weeks at which time the patient will have an appointment in my office and we can determine if we need to continue with IV antibiotics or if the patient can be switched to oral antibiotics. COMORBIDITIES: The patient has diabetes. cc: MD Petar Call MD
[2019-09-20] MEDS: DESYREL PO SCH (21:27)
[2019-09-20] MEDS: ULTRAM PO PRN (21:27)
[2019-09-21 06:45] LABS: BASO# 0.02 X1000 (0.0-0.2); BASO% 0.4 % (0.0-0.8); EOS# 0.13 X1000 (0.0-0.7); EOS% 2.6 % (0.0-10.0); HEMATOCRIT 27.6 % (42.0-52.0); HEMOGLOBIN 9.1 g/dL (14.0-18.0); IMM GRAN# 0.03 X1000 (0.0-0.04); IMM GRAN% 0.6 % (0.0-0.5); LYMPH# 1.89 X1000 (1.2-3.4); LYMPH% 37.3 % (20.5-51.1); MCH 29.7 PG (27-31); MCV 90.2 FL (81-99); MONO% 5.9 % (1.7-9.3); MPV 8.7 FL (7.4-10.4); NEUT% 53.2 % (42.2-75.2); PLT 185 X1000 (130-400); RBC 3.06 XMIL (4.7-6.1); RDW 13.5 % (11.5-14.5); WBC 5.07 X1000 (4.8-10.8)
[2019-09-21] MEDS: HUMALOG SUBQ SCH ×3 (06:48→12:13)
[2019-09-21 06:51] LABS: INR 1.13; PROTIME 14.7 Seconds (11.0-16.0)
[2019-09-21 07:18] LABS: CALCIUM 8.7 mg/dL (8.8-10.2); CREATININE 1.4 mg/dL (0.7-1.2); POTASSIUM 4.5 mmol/L (3.5-5.1)
[2019-09-21] MEDS: PRINIVIL PO SCH (08:31)
[2019-09-21] MEDS: NEURONTIN PO SCH ×2 (08:31→12:14)
[2019-09-21] MEDS ORDERED: LANTUS INSULIN SUBQ SCH (09:00)
[2019-09-21] MEDS ORDERED: NS 250 ML ONE (09:19)
[2019-09-21] MEDS ORDERED: HUMALOG SUBQ SCH (11:00)
[2019-09-21 11:45] VITALS: BP 136/84
[2019-09-21] MEDS: ROCEPHIN 2 GM in NS 50 ML IV SCH (12:14)
--- NOTE | 2019-09-21 12:36 | ORTHOPAEDICS PROGRESS NOTE ---
DATE: 09/21/2019 SUBJECTIVE: Mr. Jones is lying in bed this morning. Overall, he is feeling okay. OBJECTIVE: Right lower extremity exam: Took the dressing down. There was not near as much drainage on there as was on there Saturday. Not really any erythema around the foot today and there was not much swelling either. He does have a fairly large wound on the plantar aspect of his foot. ASSESSMENT: 1. Right diabetic foot ulcer. 2. Right foot cellulitis. PLAN: Mr. Jones is going to go home on IV antibiotics. He is going to do Rocephin over the next 3 weeks per Infectious Disease recommendations. Once he gets out of the hospital and back into clinic, we will start total contact casting on this right side to help heal his wound. He will continue to do wound care, which he is doing silver alginate, and I will see him in a week in clinic. He will remain nonweightbearing right lower extremity in between now and then. cc: MD Petar Segovia MD
--- NOTE | 2019-09-21 21:13 | DISCHARGE SUMMARY ---
ADMISSION DATE: 09/15/2019 DISCHARGE DATE: 09/21/2019 ADMITTING DIAGNOSIS: 1. Right nonhealing diabetic ulcer. 2. Uncontrolled diabetes mellitus type 2. 3. Right lower extremity cellulitis. HOSPITAL COURSE: Mr. Jones is a 38-year-old male with a past medical history of type 2 diabetes, hyperlipidemia, hypertension, DVT and chronic nonhealing right foot diabetic ulcer. We have been following him in clinic for quite some time. He has had previous surgeries on this foot including a Charcot reconstruction. We have been dealing with this chronic nonhealing wound for several months. It has improved with nonweightbearing and casting, but every time he resumes his regular shoe the wound comes back. On the in clinic he was found to have lower extremity cellulitis and quite a bit of drainage. He was admitted at that time to the hospital. We took cultures at that time and the cultures yielded Proteus mirabilis. Dr. Gutiérrez with Infectious Disease was consulted. The sensitivity did report he should be sensitive to Rocephin and Dr. Gutiérrez started him on Rocephin at that time. Dr. Corona has done several bedside debridements. We have been dressing the wound with Exufiber Ag, foam, Kerlix and tape. We will continue this when he is discharged. Overall the wound looks a lot better. He is going to get a PICC line today and be sent home on 3 weeks of IV Rocephin. He will follow up with Dr. Gutiérrez in 3 weeks. His current vital signs, temperature is 97.8 degrees, pulse is 88, respirations 16, blood pressure 122/79, he is 100% on room air. RECENT LABORATORY DATA: His white count 5.07, hemoglobin, hematocrit 9.1 and 27.9, platelet count is 185,000. His INR is 1.13. His BUN and creatinine is 23 and 1.5. His most recent glucose was 481. Unfortunately, he is still unable to control his glucose. We have discussed diabetic education and diabetic control in great detail. We have also discussed that this will greatly reduce his chances of healing if we cannot get that under control. We did check an albumin and prealbumin which is 3.5 and 19.2. We have encouraged him to do a Glucerna shake with meals. At this time Mr. Jones is ready for discharge. DISCHARGE MEDICATIONS: Neurontin 400 mg p.o. 4 times a day, Lantus insulin 50 units subcu daily, Prinivil 10 mg p.o. daily, Desyrel 100 mg p.o. at bedtime, Rocephin 2 g daily IV for 3 weeks. DISCHARGE DISPOSITION: Mr. Jones is being discharged home to home health. He does have an attentive fiancee that he says can manage IV antibiotics and his dressing. We will still set him up with home health to assist with the set up, management and education. I also want him to continue diabetic education. Mr. Jones did have an MRI while in the hospital that did not show osteomyelitis. However his chance of healing this chronic wound is low. We have discussed this with him in great detail and discussed that eventually this will lead to a [id number] amputation if we cannot keep this from getting infected. He understands and says he is really going to work on his diabetic control as well as his nutritional status. We will follow up with him in the office in 1 week. He knows to call with any increase in erythema and drainage. He will change that dressing daily and continue his IV antibiotics. Dictated by VAZQUEZ Acosta for Talib Corona MD cc: VAZQUEZ Acosta MD Raphael K. Quansah, MD
--- NOTE | 2019-09-22 15:16 | DISCHARGE SUMMARY ---
ADMISSION DATE: 09/15/2019 DISCHARGE DATE: 09/21/2019 DISPOSITION: Home. FOLLOWUP: 1. Dr. Corona. 2. Dr. Gutiérrez. INVASIVE PROCEDURES DONE DURING THIS ADMISSION.: None. 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 No signs of osteomyelitis. There was also soft tissue ulceration at the plantar aspect of the foot with surrounding edema indicating cellulitis. MICROBIOLOGY DATA OF SIGNIFICANCE: A foot culture did show Strep agalactia. ADMISSION DIAGNOSES: 1. Type 2 diabetes mellitus with hyperglycemia. 2. Diabetic foot with cellulitis. 3. Hypertension. 4. Dyslipidemia. DIAGNOSIS AT THE TIME OF DISCHARGE: 1. Right diabetic foot ulcer associated with cellulitis. Culture positive for Strep agalactia. 2. Uncontrolled diabetes mellitus type 2 with presenting A1c of 10.5, complicated with hyperglycemia. 3. Hypertension. 4. Dyslipidemia. 5. Diabetic peripheral neuropathy. 6. Normocytic anemia of chronic disease. DISCHARGE MEDICATIONS: 1. Metformin 1000 mg p.o. b.i.d. 2. Glyburide 4 mg p.o. daily. 3. Trazodone 100 mg p.o. at bedtime. 4. Gabapentin 400 four times per day. 5. Xarelto 20 mg p.o. at bedtime. 6. Lisinopril 10 mg p.o. at bedtime. 7. Atorvastatin 40 mg p.o. at bedtime. 8. Tramadol 50 mg three times per day. 9. Insulin glargine (Toujeo) 50 units subcutaneously in the morning. PRESENTING COMPLAINT: Diabetic foot for diabetic control. HISTORY OF PRESENTING COMPLAINT: Mr. Jones is a 38-year-old male who has history of type 2 diabetes mellitus, hypertension, history of DVT, previously treated for right foot osteomyelitis, follows up with Dr. Corona. The patient apparently had some incision and drainage recently done and sent home. The foot culture has yielded positive again, so he was advised to come for inpatient for review and possible surgical intervention. He was also found to be remarkably hyperglycemic and diabetes was uncontrolled. We were actually consulted by the Orthopedic Team for management of his other comorbidities. Mr. Jones was admitted to the surgical floor. He was started on insulin regimen and we kept titrating his insulin for better glycemic control. Initially, we felt that he had a bone infection. An MRI of the lower extremity was done by Dr. Corona, which came back negative for any signs of osteomyelitis. A decision was made just to treat him medically. The culture which was done from Dr. Corona's office came back positive for Strep B. The patient's antibiotics were subsequently changed to IV ceftriaxone. Today, he has had a PICC line and he has had his ceftriaxone arranged by Infectious Disease. He is therefore going to be discharged home on IV Rocephin. We have uptitrated his insulin needs and he is going to follow up with Dr. Gutiérrez and Dr. Corona. All the discharge instructions have been discussed with him and he voiced understanding. At the time of the discharge his vitals: Blood pressure was 136/84, pulse of 85, respiration is 16, temperature is 97.4 degrees. He is clinically stable. cc: MD Talib Chavez MD Leroy F. Harris, MD
== END 2019-09-21 14:15 | disposition home or self-care (01) | DRG 638 ==
LOC: DIRADM 15:11 → 4N 16:01
PROVIDERS: ADMIT Internal Medicine; ATTEND Orthopaedic Surgery